=== PATIENT | female | born 1950 | race Caucasian/White ===

== ENCOUNTER 2018-07-23 12:17 | Outpatient (CLI) | payer MEDICARE, SELFPAY ==
[2018-07-23 13:25] LABS: Cholesterol 170 mg/dL (50-200); HDL Cholesterol 46 mg/dL (40-60); LDL CHOLESTEROL 86 mg/dL (<100); Triglyceride 299 mg/dL (30-150)
== END 2018-07-23 12:37 ==
PROVIDERS: PCP Nurse Practitioner; Visit Provider Nurse Practitioner
DX: E78.5 Hyperlipidemia, unspecified (principal); I25.10 Atherosclerotic heart disease of native coronary artery without angina pectoris
CPT/HCPCS: 36415; 80061; 83721

== ENCOUNTER 2018-07-31 13:00 | Outpatient (CLI) | payer MEDICARE, SELFPAY ==
[2018-07-31 14:07] LABS: ALT 49 U/L (12-78); AST 42 U/L (15-37); Albumin 3.9 g/dL (3.4-5.0); Alkaline Phosphatase 155 U/L (46-116); Anion Gap 10.6 mmol/L (3-11); BUN 29 mg/dL (7-18); Bilirubin, Total 0.3 mg/dL (0.2-1.0); CO2 25.4 mmol/L (21.0-32.0); CREATININE 1.38 mg/dL (0.55-1.02); Calcium 9.4 mg/dL (8.5-10.1); Chloride 103 mmol/L (98-107); Estimated GFR 38.37 (mL/min/1.73m2); Glucose 102 mg/dL (70-100); Potassium 4.8 mmol/L (3.5-5.1); Sodium 139 mmol/L (136-145); Total Protein 6.9 g/dL (6.4-8.2)
== END 2018-07-31 13:20 ==
PROVIDERS: PCP Nurse Practitioner; Visit Provider Nurse Practitioner
DX: H57.9 Unspecified disorder of eye and adnexa (principal); R73.09 Other abnormal glucose; I25.10 Atherosclerotic heart disease of native coronary artery without angina pectoris; E66.9 Obesity, unspecified
CPT/HCPCS: 36415; 80053

== ENCOUNTER 2018-08-14 14:43 | Outpatient (CLI) | payer MEDICARE, SELFPAY ==
[2018-08-14 16:23] LABS: Anion Gap 10.8 mmol/L (3-11); BUN 22 mg/dL (7-18); CO2 26.2 mmol/L (21.0-32.0); CREATININE 1.24 mg/dL (0.55-1.02); Calcium 9.9 mg/dL (8.5-10.1); Chloride 101 mmol/L (98-107); Estimated GFR 43.41 (mL/min/1.73m2); Glucose 95 mg/dL (70-100); Sodium 138 mmol/L (136-145)
== END 2018-08-14 15:03 ==
PROVIDERS: PCP Nurse Practitioner; Visit Provider Nurse Practitioner
DX: R79.9 Abnormal finding of blood chemistry, unspecified (principal)
CPT/HCPCS: 36415; 80048

== ENCOUNTER 2018-08-30 11:08 | Outpatient (CLI) | payer MEDICARE, SELFPAY ==
[2018-08-30 12:29] LABS: Anion Gap 10.6 mmol/L (3-11); BUN 23 mg/dL (7-18); CO2 25.4 mmol/L (21.0-32.0); CREATININE 1.49 mg/dL (0.55-1.02); Calcium 10.1 mg/dL (8.5-10.1); Chloride 101 mmol/L (98-107); Estimated GFR 35.12 (mL/min/1.73m2); Glucose 92 mg/dL (70-100); Potassium 4.8 mmol/L (3.5-5.1); Sodium 137 mmol/L (136-145)
== END 2018-08-30 11:28 ==
PROVIDERS: PCP Nurse Practitioner; Visit Provider Nurse Practitioner
DX: R79.9 Abnormal finding of blood chemistry, unspecified (principal); I25.10 Atherosclerotic heart disease of native coronary artery without angina pectoris
CPT/HCPCS: 36415; 80048

== ENCOUNTER 2018-09-11 13:17 | Outpatient (CLI) | payer MEDICARE, SELFPAY ==
[2018-09-11 16:06] LABS: Anion Gap 13.2 mmol/L (3-11); BUN 24 mg/dL (7-18); CO2 22.8 mmol/L (21.0-32.0); CREATININE 1.48 mg/dL (0.55-1.02); Calcium 9.7 mg/dL (8.5-10.1); Chloride 103 mmol/L (98-107); Estimated GFR 35.39 (mL/min/1.73m2); Glucose 131 mg/dL (70-100); Potassium 4.7 mmol/L (3.5-5.1); Sodium 139 mmol/L (136-145)
== END 2018-09-11 13:37 ==
PROVIDERS: PCP Nurse Practitioner; Visit Provider Internal Medicine Endocrinology, Diabetes & Metabolism
DX: R89.9 Unspecified abnormal finding in specimens from other organs, systems and tissues (principal)
CPT/HCPCS: 36415; 80048

== ENCOUNTER 2018-09-27 14:24 | Outpatient (CLI) | payer MEDICARE, SELFPAY ==
[2018-09-27 16:07] LABS: Anion Gap 12.1 mmol/L (3-11); BUN 15 mg/dL (7-18); CO2 23.9 mmol/L (21.0-32.0); Calcium 9.4 mg/dL (8.5-10.1); Chloride 105 mmol/L (98-107); Estimated GFR 49.85 (mL/min/1.73m2); Glucose 99 mg/dL (70-100); Potassium 4.3 mmol/L (3.5-5.1); Sodium 141 mmol/L (136-145)
== END 2018-09-27 14:44 ==
PROVIDERS: PCP Nurse Practitioner; Visit Provider Internal Medicine Endocrinology, Diabetes & Metabolism
DX: R89.9 Unspecified abnormal finding in specimens from other organs, systems and tissues (principal)
CPT/HCPCS: 36415; 80048

== ENCOUNTER 2019-07-25 08:51 | Outpatient (CLI) | payer MEDICARE, SELFPAY ==
[2019-07-25 10:13] LABS: Hemoglobin A1C 5.7 % (4.5-6.2)
[2019-07-25 11:10] LABS: Calculated LDL 78 mg/dL; Cholesterol 176 mg/dL (<200); HDL Cholesterol 51 mg/dL (40-60); Triglyceride 235 mg/dL (<150)
[2019-07-25 11:20] LABS: Glucose 99 mg/dL (74-106)
== END 2019-07-25 09:11 ==
PROVIDERS: PCP Nurse Practitioner; Visit Provider Optometrist
DX: I25.10 Atherosclerotic heart disease of native coronary artery without angina pectoris (principal); E08.21 Diabetes mellitus due to underlying condition with diabetic nephropathy; E78.5 Hyperlipidemia, unspecified
CPT/HCPCS: 36415; 80061; 82947; 83036

== ENCOUNTER 2019-07-31 00:43 | Outpatient (CLI) | payer MEDICARE, SELFPAY ==
--- NOTE | 2019-07-31 08:03 | DI.US_ITS ---
EXAM: US AAA SCREENING CLINICAL HISTORY: screen AAA Z87.891 HX NICOTINE DEPENDENCE TECHNIQUE: Ultrasound performed using standard protocol. COMPARISON: SACRUM COCCYX from 10/23/2016 CHEST FOR PULMONARY EMBOLUS from 11/01/2016 FINDINGS: There is mild dilatation of the mid and distal abdominal aorta 2.6 cm compared with the proximal aor ta which measures 2.2 cm. The iliac arteries are normal in diameter. IMPRESSION: No evidence of an abdominal aortic aneurysm.
== END 2019-07-31 01:03 ==
PROVIDERS: PCP Nurse Practitioner; Visit Provider Nurse Practitioner
DX: I25.10 Atherosclerotic heart disease of native coronary artery without angina pectoris (principal); I10 Essential (primary) hypertension; F64.0 Transsexualism; Z87.891 Personal history of nicotine dependence
CPT/HCPCS: 76706

== ENCOUNTER → 2019-09-04 11:05 | Outpatient (BNVA) | payer MEDICARE, SELFPAY | PROVIDERS: PCP Nurse Practitioner; Referring Provider Nurse Practitioner; Visit Provider Internal Medicine Cardiovascular Disease | DX: I25.10 Atherosclerotic heart disease of native coronary artery without angina pectoris (principal); E78.5 Hyperlipidemia, unspecified; Z95.1 Presence of aortocoronary bypass graft; I10 Essential (primary) hypertension | CPT/HCPCS: 99204; 99215 ==

== ENCOUNTER 2019-09-30 10:16 | Outpatient (CLI) | payer MEDICARE, SELFPAY ==
--- NOTE | 2019-09-30 09:53 | DI.RAD_ITS ---
EXAM: XR HIP RT COMPLETE AP PELVIS INDICATION: Pain around the ASIS M25.559 PAIN IN HIP. COMPARISON: SACRUM COCCYX from 10/23/2016 TECHNIQUE: 2D digital imaging was performed. FINDINGS: Joint spaces are well maintained. There is bilateral acetabular spurring. Spurring is also seen fr om the greater trochanters. IMPRESSION: Mild degenerative changes.
== END 2019-09-30 10:36 ==
PROVIDERS: PCP Nurse Practitioner; Visit Provider Family Medicine
DX: M25.551 Pain in right hip (principal); M16.11 Unilateral primary osteoarthritis, right hip
CPT/HCPCS: 73502

== ENCOUNTER 2020-02-26 01:25 | Outpatient (CLI) | payer MEDICARE, SELFPAY ==
[2020-02-26 11:45] LABS: HCT 39.5 % (36.0-46.0); HGB 13.6 g/dL (12.0-15.5); Mean Corp. HGB Concentration 34.4 g/dL (32.0-36.0); Mean Corpuscular Hemoglobin 30.4 pg (27.0-33.0); Mean Corpuscular Volume 88.4 fL (80-95); Mean Platelet Volume 11.2 fL (8.0-11.0); Platelet Count 340 x1000/uL (130-400); RBC 4.47 m/cumm (4.00-5.20); RBC Distribution Width 14.4 % (11.7-14.6); White Blood Cell Count 6.96 k/cumm (4.4-10.8)
[2020-02-26 13:11] LABS: ALT 21 U/L (14-59); AST 21 U/L (15-37); Albumin 3.7 g/dL (3.4-5.0); Alkaline Phosphatase 101 U/L (46-116); BUN 12 mg/dL (7-18); Bilirubin, Total 0.2 mg/dL (0.2-1.0); CREATININE 1.06 mg/dL (0.55-1.02); Calcium 9.4 mg/dL (8.5-10.1); Calculated LDL 72 mg/dL (<100); Chloride 105 mmol/L (98-107); Cholesterol 157 mg/dL (<200); Estimated GFR 51.71 (mL/min/1.73m2); Glucose 100 mg/dL (74-106); HDL Cholesterol 50 mg/dL (40-60); Potassium 4.3 mmol/L (3.5-5.1); Sodium 140 mmol/L (136-145); Total Protein 6.7 g/dL (6.4-8.2); Triglyceride 177 mg/dL (<150)
[2020-02-26 17:01] LABS: Estradiol 24 pg/mL (See Note)
== END 2020-02-26 01:45 ==
PROVIDERS: PCP Nurse Practitioner; Visit Provider Nurse Practitioner
DX: I25.10 Atherosclerotic heart disease of native coronary artery without angina pectoris (principal); F43.20 Adjustment disorder, unspecified
CPT/HCPCS: 36415; 80053; 80061; 85027; 82670

== ENCOUNTER → 2020-09-13 11:51 | Outpatient (BNVA) | payer MEDICARE, SELFPAY | PROVIDERS: PCP Nurse Practitioner; Referring Provider Nurse Practitioner; Visit Provider Internal Medicine Cardiovascular Disease | DX: R69 Illness, unspecified (principal) ==

== ENCOUNTER → 2020-10-11 11:41 | Outpatient (BNVA) | payer MEDICARE, SELFPAY | PROVIDERS: PCP Nurse Practitioner; Referring Provider Nurse Practitioner; Visit Provider Internal Medicine Cardiovascular Disease | DX: I25.810 Atherosclerosis of coronary artery bypass graft(s) without angina pectoris (principal); Z79.82 Long term (current) use of aspirin; E78.5 Hyperlipidemia, unspecified | CPT/HCPCS: 99442; 99213 ==

== ENCOUNTER 2020-10-29 09:35 | Day surgery (SDC) | payer MEDICARE, SELFPAY ==
[2020-10-29 10:03] VITALS: BP 123/61; PULSE 65; RESP 16; TEMP 35.9; O2SAT 97
[2020-10-29] MEDS: Tropicam./Phenyleph. (1/2.5%) 5 ML BTL OD ×3 (10:21→10:34)
[2020-10-29] MEDS: Tetracaine 0.5% 4 ML BTL OD (11:10)
[2020-10-29] MEDS: Duovisc Viscoelastic System EACH 1 EACH (11:11)
[2020-10-29] MEDS: Balanced Salt Soln.-PLUS 500 ML BAG (11:11)
[2020-10-29] MEDS: Lidocaine 1% Pres-Free 5 ML VIAL (11:12)
[2020-10-29] MEDS: Lidocaine 2% Jelly 6 ML SYR (11:12)
[2020-10-29] MEDS: Povidone-Iodine Ophth 30 ML BTL (11:13)
--- NOTE | 2020-10-29 11:38 | ROE_ITS ---
Date of service: 10/29/20 Time of Service: 11:38 Operative Note Operative Note DATE OF PROCEDURE: 10/29/20 PRE-OP DIAGNOSIS: Nuclear cataract, right eye POST-OP DIAGNOSIS: same PROCEDURE: Cataract extraction using phacoemulsification with intraocular lens implant, right eye SURGEON: Armond Cowart ANESTHESIA TYPE: Local By Surgeon and MAC Refer to Anesthesia Record ESTIMATED BLOOD LOSS: 0 PATHOLOGY: none sent COMPLICATIONS: None Patient was transported to: same day Patient's condition: stable Implants: Rodrigo [employer] / [employer] Tecnis ZCB00 intraocular lens Indications: Progressive decreased vision due to cataract, right eye Procedure Description: CATARACT SURGERY OPERATIVE REPORT PREOPERATIVE DIAGNOSIS: Nuclear cataract, right eye POSTOPERATIVE DIAGNOSIS: Same OPERATION: Cataract extraction using phacoemulsification with posterior chamber intraocular lens implant, right eye. IOL: IOL Regional Operations Manager/Model: J[employer]J Vision / SO Tecnis ZCB00 IOL Power: + 15.5 diopters IOL Serial Number: [id number] Optic Diameter: 6.0mm Haptic/Overall Diameter: 13.0mm PHACO INFO: Yayo [employer] Vision System with OZil and Active Fluidics Cumulative Dispersed Energy (CDE): 15.14 seconds SURGEON: Armond Cowart MD, MORGAN ANESTHESIA: Monitored Anesthesia Care (MAC), with local sub-tenon's anesthetic infiltration COMPLICATIONS: None SPECIMENS: None INDICATIONS FOR PROCEDURE: The patient is a 69-year-old lady with history of myopia who has noted diminished visual acuity in both eyes. She was noted to have significant bilateral nuclear cataract. The option of cataract surgery was offered to the patient and she wished to proceed. PROCEDURE: The correct surgical eye was identified and marked as the right eye and the pupil was dilated in the preoperative area using mydriatics and cycloplegics. The dilated pupil size was 6.5 mm. She elected to proceed without oral sedation. The patient was brought to the operating room where cardiopulmonary monitoring was instituted and surgical time-out was performed, confirming the correct operative eye and IOL power. Topical anesthesia was administered and ophthalmic povidone-iodine 5% was instilled into the conjunctival fornices. Lidocaine gel was applied to the cornea and the gertrude-ocular area was prepped with Betadine 10% solution and draped in the usual sterile fashion for intraocular surgery, including an aperture drape. A Tegaderm transparent film dressing was cut in half and used to cover the lashes and lid margins. Care was taken to sequester the lashes and lid margins under the Tegaderm dressing. A lid speculum was placed between the lids of the operative eye and the May-Mara operating microscope was maneuvered into position. Allie scissors were then used to make a conjunctival buttonhole approximately 6mm posterior to the limbus in the inferonasal quadrant. Blunt dissection was carried out to expose bare sclera, and a blunt-tipped sub-tenon?s anesthesia cannula was introduced and passed posteriorly along the globe where non- preserved plain lidocaine was injected into posterior sub-Tenon?s space. A sideport knife was used to make a paracentesis port inferiortemporally. Intraocular phenylephrine/lidocaine was injected into the anterior chamber. The anterior chamber was then filled with viscoelastic. A 2.4mm keratome knife was used to create a half-thickness groove at the limbus and then to construct a three-plane near-clear corneal tunnel extending 2.0mm into clear cornea in the superiortemporal position. . A flap was raised on the anterior capsule and capsulorhexis forceps were used to complete a continuous curvilinear capsulorhexis of 5.0 mm. Balanced salt solution was then used to perform cortical cleaving hydrodissection and nuclear hydrodelineation until the lens could be freely rotated within the capsular bag. The lens nucleus was then disassembled and removed within the capsular bag and iris plane using phacoemulsification. Residual cortical material was removed using the I/A handpiece. The posterior capsule was carefully polished to remove as much residual lens epithelial cells as safely possible. The capsular bag was then inflated and the anterior chamber deepened with viscoelastic. The lens implant described above was inserted into the capsular bag using the SO [place] Injector. A Kuglen hook was used to dial the IOL into position. Residual viscoelastic was then removed first from posterior to the IOL, then from the anterior chamber using the I/A handpiece. The lens implant was noted to center nicely within the capsular bag. The incisions were stromally hydrated, and the anterior chamber was reformed using BSS. Then 0.5cc of moxifloxacin 1.0mg/ml were injected into the capsular bag and anterior chamber. The incisions were checked with a Weck spear and found to be secure. Several drops of ophthalmic povidone-iodine 5% were then applied to the eye followed by two drops of Imprimis combination prednisolone/moxifloxacin/nepafenac solution. The drapes were removed and a clear plastic protective eye shield was placed over the eye. The patient was then returned to Same Day Surgery in stable condition.
--- NOTE | 2020-10-29 11:38 | W.PM.DSUDISC ---
Discharge Plan Disposition Patient Disposition: HOME Condition: Good Discharge Details Attending Provider: Armond Cowart Primary Care Provider: Yara Chaudhry Home Meds and New Rx's Prescriptions: No Action rosuvastatin 40 mg tablet 40 mg PO DAILY Qty: 90 RF: 3 multivitamin [Daily Multi-Vitamin] 1 EACH tablet 1 ea PO DAILY RF: 0 coenzyme [id number]-[id number] E [Co Q-10 (with Vit E)] 1 EACH capsule 1 ea PO BID RF: 0 aspirin 81 mg tablet,delayed release (DR/EC) 81 mg PO DAILY Qty: 60 RF: 0 estradiol 0.1 mg/24 hr patch semiweekly 1 patch TD .twice weekly RF: 0 acetaminophen 500 mg tablet 1,000 mg PO Q6H RF: 0 metoprolol succinate 100 mg tablet extended release 24 hr 100 mg PO BID Qty: 180 RF: 3 Discharge Instructions Stand Alone Forms: Post-op Topical Cataract, Holly Khan (DSU) Discharge Orders Discharge Orders: Discharge Order (Routine); Ordered 10/29/20 Ordered By: Armond Cowart DS: Diagnosis Discharge Diagnosis (1) Nuclear sclerotic cataract of right eye: Status: Resolved
[2020-10-29 11:39] VITALS: BP 127/70; PULSE 58; RESP 16; TEMP 36; O2SAT 99
== END 2020-10-29 12:24 | disposition home or self-care (01) ==
PROVIDERS: PCP Nurse Practitioner; Visit Provider Ophthalmology
PROC: (CPT 66984; principal; 2020-10-29 12:30)
DX: H25.11 Age-related nuclear cataract, right eye (principal); I10 Essential (primary) hypertension; E78.00 Pure hypercholesterolemia, unspecified; I25.10 Atherosclerotic heart disease of native coronary artery without angina pectoris
CPT/HCPCS: 66984; V2632

== ENCOUNTER 2020-11-12 09:35 | Day surgery (SDC) | payer MEDICARE, SELFPAY ==
[2020-11-12 10:02] VITALS: BP 117/64; PULSE 61; RESP 20; TEMP 36; O2SAT 97
[2020-11-12] MEDS: Tropicam./Phenyleph. (1/2.5%) 5 ML BTL OS ×3 (10:08→10:18)
[2020-11-12] MEDS: Tetracaine 0.5% 4 ML BTL OS (11:28)
[2020-11-12] MEDS: Balanced Salt Soln.-PLUS 500 ML BAG (11:29)
[2020-11-12] MEDS: Duovisc Viscoelastic System EACH 1 EACH (11:30)
[2020-11-12] MEDS: Lidocaine 1% Pres-Free 5 ML VIAL (11:30)
[2020-11-12] MEDS: Lidocaine 2% Jelly 6 ML SYR (11:30)
[2020-11-12] MEDS: Povidone-Iodine Ophth 30 ML BTL (11:31)
--- NOTE | 2020-11-12 11:53 | W.PM.DSUDISC ---
Discharge Plan Disposition Patient Disposition: HOME Condition: Good Discharge Details Attending Provider: Armond Cowart Primary Care Provider: Yara Chaudhry Home Meds and New Rx's Prescriptions: No Action rosuvastatin 40 mg tablet 40 mg PO DAILY Qty: 90 RF: 3 multivitamin [Daily Multi-Vitamin] 1 EACH tablet 1 ea PO DAILY RF: 0 coenzyme P50-lulbcyy E [Co Q-10 (with Vit E)] 1 EACH capsule 1 ea PO BID RF: 0 aspirin 81 mg tablet,delayed release (DR/EC) 81 mg PO DAILY Qty: 60 RF: 0 estradiol 0.1 mg/24 hr patch semiweekly 1 patch TD .twice weekly RF: 0 acetaminophen 500 mg tablet 1,000 mg PO Q6H RF: 0 metoprolol succinate 100 mg tablet extended release 24 hr 100 mg PO BID Qty: 180 RF: 3 Discharge Instructions Stand Alone Forms: Post-op Topical Cataract, Holly Khan (DSU) Discharge Orders Discharge Orders: Discharge Order (Routine); Ordered 11/12/20 Ordered By: Armond Cowart DS: Diagnosis Discharge Diagnosis (1) Nuclear sclerotic cataract of left eye: Status: Resolved
--- NOTE | 2020-11-12 11:54 | ROE_ITS ---
Date of service: 11/12/20 Time of Service: 11:54 Operative Note Operative Note DATE OF PROCEDURE: 11/12/20 PRE-OP DIAGNOSIS: Nuclear cataract, left eye POST-OP DIAGNOSIS: same PROCEDURE: Cataract extraction using phacoemulsification with intraocular lens implant, left eye SURGEON: Armond Cowart ANESTHESIA TYPE: Local By Surgeon and MAC Refer to Anesthesia Record PATHOLOGY: none sent COMPLICATIONS: None Patient was transported to: same day Patient's condition: stable Implants: Rodrigo and [employer] / [employer] Tecnis ZCB00 Indications: Progressive decreased vision due to cataract, left eye Procedure Description: CATARACT SURGERY OPERATIVE REPORT PREOPERATIVE DIAGNOSIS: Nuclear cataract, left eye POSTOPERATIVE DIAGNOSIS: Same OPERATION: Cataract extraction using phacoemulsification with posterior chamber intraocular lens implant, left eye. IOL: IOL Head Of Loss Prevention/Model: J&J Vision / SO Tecnis ZCB00 IOL Power: + 17.0 diopters IOL Serial Number: [id number] Optic Diameter: 6.0mm Haptic/Overall Diameter: 13.0mm PHACO INFO: Yayo [employer] Vision System with OZil and Active Fluidics Cumulative Dispersed Energy (CDE): 7.65 seconds SURGEON: Armond Cowart MD, MORGAN ANESTHESIA: Monitored Anesthesia Care (MAC), with local sub-tenon's anesthetic infiltration COMPLICATIONS: None SPECIMENS: None INDICATIONS FOR PROCEDURE: The patient is a 69-year-old lady with history of diminished visual acuity in both eyes secondary to the development of bilateral cataract. She has already undergone cataract surgery in her right eye and is doing well postoperatively. She now presents for cataract surgery in the left eye. PROCEDURE: The correct surgical eye was identified and marked as the left eye and the pupil was dilated in the preoperative area using mydriatics and cycloplegics. The dilated pupil size was 6.5 mm. The patient elected to proceed without oral sedation.. The patient was brought to the operating room where cardiopulmonary monitoring was instituted and surgical time-out was performed, confirming the correct operative eye and IOL power. Topical anesthesia was administered and ophthalmic povidone-iodine 5% was instilled into the conjunctival fornices. Lidocaine gel was applied to the cornea and the gertrude-ocular area was prepped with Betadine 10% solution and draped in the usual sterile fashion for intraocular surgery, including an aperture drape. A Tegaderm transparent film dressing was cut in half and used to cover the lashes and lid margins. Care was taken to sequester the lashes and lid margins under the Tegaderm dressing. A lid speculum was placed between the lids of the operative eye and the May-Mara operating microscope was maneuvered into position. Allie scissors were then used to make a conjunctival buttonhole approximately 6mm posterior to the limbus in the inferonasal quadrant. Blunt dissection was carried out to expose bare sclera, and a blunt-tipped sub-tenon?s anesthesia cannula was introduced and passed posteriorly along the globe where non- preserved plain lidocaine was injected into posterior sub-Tenon?s space. A sideport knife was used to make a paracentesis port superior/superiortemporally. Intraocular phenylephrine/lidocaine was injected into the anterior chamber. The anterior chamber was then filled with viscoelastic. A 2.4mm keratome knife was used to create a half-thickness groove at the limbus and then to construct a three-plane near-clear corneal tunnel extending 2.0mm into clear cornea in the temporal position. . A flap was raised on the anterior capsule and capsulorhexis forceps were used to complete a continuous curvilinear capsulorhexis of 5.5 mm. Balanced salt solution was then used to perform cortical cleaving hydrodissection and nuclear hydrodelineation until the lens could be freely rot ated within the capsular bag. The lens nucleus was then disassembled and removed within the capsular bag and iris plane using phacoemulsification. Residual cortical material was removed using the 45-degree angled silicone I/A tip with 0.3mm port. The posterior capsule was carefully polished to remove as much residual lens epithelial cells as safely possible. The capsular bag was then inflated and the anterior chamber deepened with viscoelastic. The lens implant described above was inserted into the capsular bag using the SO [place] Injector. A Kuglen hook was used to dial the IOL into position. Residual viscoelastic was then removed first from posterior to the IOL, then from the anterior chamber using the I/A handpiece. The lens implant was noted to center nicely within the capsular bag. The incisions were stromally hydrated, and the anterior chamber was reformed using BSS. Then 0.5cc of moxifloxacin 1.0mg/ml were injected into the capsular bag and anterior chamber. The inci sions were checked with a Weck spear and found to be secure. Several drops of ophthalmic povidone-iodine 5% were then applied to the eye followed by two drops of Imprimis combination prednisolone/moxifloxacin/nepafenac solution. The drapes were removed and a clear plastic protective eye shield was placed over the eye. The patient was then returned to Same Day Surgery in stable condition.
== END 2020-11-12 12:23 | disposition home or self-care (01) ==
PROVIDERS: PCP Nurse Practitioner; Visit Provider Ophthalmology
PROC: (CPT 66984; principal; 2020-11-12 12:30)
DX: H25.12 Age-related nuclear cataract, left eye (principal); Z96.1 Presence of intraocular lens; Z98.41 Cataract extraction status, right eye
CPT/HCPCS: 66984; V2632

== ENCOUNTER 2020-11-17 03:30 | Outpatient (CLI) | payer MEDICARE, SELFPAY ==
[2020-11-17 14:33] LABS: ALT 27 U/L (14-59); AST 26 U/L (15-37); Albumin 3.6 g/dL (3.4-5.0); Alkaline Phosphatase 106 U/L (46-116); Anion Gap 6.4 mmol/L (3-11); BUN 16 mg/dL (7-18); Bilirubin, Total 0.4 mg/dL (0.2-1.0); CO2 29.6 mmol/L (21.0-32.0); CREATININE 1.1 mg/dL (0.55-1.02); Calcium 9.7 mg/dL (8.5-10.1); Chloride 104 mmol/L (98-107); Estimated GFR 49.54 (mL/min/1.73m2); Glucose 104 mg/dL (74-106); Potassium 4.8 mmol/L (3.5-5.1); Sodium 140 mmol/L (136-145)
[2020-11-17 22:15] LABS: Estradiol 51 pg/mL (See Note)
[2020-11-23 10:20] LABS: Testosterone, Total <7.0 ng/dL (8-60)
== END 2020-11-17 03:31 | disposition home or self-care (01) ==
LOC: LBO 03:30
PROVIDERS: PCP Nurse Practitioner; Visit Provider Internal Medicine Endocrinology, Diabetes & Metabolism
DX: E34.9 Endocrine disorder, unspecified (principal)
CPT/HCPCS: 36415; 80053; 84403; 82670

== ENCOUNTER 2021-04-14 03:50 | Outpatient (CLI) | payer MEDICARE, SELFPAY ==
[2021-04-14 10:46] LABS: ALT 21 U/L (14-59); AST 23 U/L (15-37); Albumin 3.6 g/dL (3.4-5.0); Alkaline Phosphatase 86 U/L (46-116); BUN 14 mg/dL (7-18); Bilirubin, Total 0.3 mg/dL (0.2-1.0); Calcium 9.3 mg/dL (8.5-10.1); Calculated LDL 56 mg/dL (<100); Chloride 106 mmol/L (98-107); Cholesterol 153 mg/dL (<200); Estimated GFR 55.14 (mL/min/1.73m2); Glucose 106 mg/dL (74-106); HDL Cholesterol 47 mg/dL (40-60); Potassium 4.4 mmol/L (3.5-5.1); Sodium 141 mmol/L (136-145); Total Protein 6.5 g/dL (6.4-8.2); Triglyceride 253 mg/dL (<150)
== END 2021-04-14 03:51 | disposition home or self-care (01) ==
LOC: LBO 03:50
PROVIDERS: PCP Nurse Practitioner; Visit Provider Nurse Practitioner
DX: I25.10 Atherosclerotic heart disease of native coronary artery without angina pectoris (principal); E78.5 Hyperlipidemia, unspecified
CPT/HCPCS: 36415; 80053; 80061

== ENCOUNTER 2021-08-29 01:49 | Outpatient (CLI) | payer MEDICARE, SELFPAY ==
--- NOTE | 2021-08-29 08:15 | DI.MAMMO_ITS ---
Exam(s) MAMMO SCREENING EXAM: MAMMO SCREENING CLINICAL HISTORY: screening,z12.39 TECHNIQUE: Mammograms were interpreted according to the usual protocol including computer analysis w [employer] CAD system, tomosynthesis and C-view imaging. COMPARISON: None. Baseline examination FINDINGS: The breasts are composed of heterogeneously dense fibroglandular densities, Breast Density category C . No suspicious masses or suspicious microcalcifications are seen. No skin thickening or abnormal axillary lymph nodes are seen. IMPRESSION: BI-RADS Category 1, Negative mammogram. Yearly screening mammography is recommended. Breast Density Category C, heterogeneously Dense. The mammogram demonstrates the patient's breast tissue is dense. Dense breast tissue is very common a nd is not abnormal but dense breast tissue can make it harder to find cancer on a mammogram. Also, de nse breast tissue may increase breast cancer risk. This information about the result of the mammogram report was provided to the patient to raise their awareness. Use this report when you speak with the patient about their risks for breast cancer, which includes their family history. At that time, you may recommend additional screening tests (Ultrasound or MRI) as they might be useful based on their r isk. A negative radiographic report should not delay biopsy if a dominant or clinically suspicious mass is present. Up to ten percent of cancers are not identified on mammography. A negative report may reinforce clinical impression. Adenosis and dense breasts may obscure an underlying neoplasm. False positive reports average 6 to 10%.
--- NOTE | 2021-08-29 08:15 | DI.RAD_ITS ---
Exam(s) XR RIBS RT W PA LAT CHEST CLINICAL HISTORY: right rib pain for 2 years,r07.81. COMPARISON: CR RIGHT SHOULDER COMPLETE from 11/06/2016 FINDINGS: LUNGS:Clear. No pleural abnormality seen. HEART: Normal. 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 BONES: No displaced rib fracture is seen. No bony destructive lesion is seen. Mild degenerative perales ges in the spine. OTHER FINDINGS: Sternal wires. IMPRESSION: 1. Unremarkable radiographic appearance of the right ribs. 2. No acute pulmonary findings.
== END 2021-08-29 02:09 ==
PROVIDERS: PCP Nurse Practitioner; Visit Provider Nurse Practitioner
DX: R07.81 Pleurodynia (principal); I25.10 Atherosclerotic heart disease of native coronary artery without angina pectoris; E78.5 Hyperlipidemia, unspecified; Z12.31 Encounter for screening mammogram for malignant neoplasm of breast; R92.8 Other abnormal and inconclusive findings on diagnostic imaging of breast
CPT/HCPCS: 77063; 77067; 71046; 71100; 99213

== ENCOUNTER 2021-08-31 03:25 | Outpatient (CLI) | payer MEDICARE, SELFPAY ==
[2021-08-31 13:20] LABS: Calculated LDL 63 mg/dL (<100); Cholesterol 153 mg/dL (<200); HDL Cholesterol 56 mg/dL (40-60); Triglyceride 170 mg/dL (<150)
[2021-08-31 13:28] LABS: ALT 29 U/L (14-59); AST 26 U/L (15-37); Albumin 3.7 g/dL (3.4-5.0); Alkaline Phosphatase 88 U/L (46-116); Anion Gap 10.3 mmol/L (3-11); BUN 15 mg/dL (7-18); Bilirubin, Total 0.4 mg/dL (0.2-1.0); CO2 24.7 mmol/L (21.0-32.0); Calcium 9.4 mg/dL (8.5-10.1); Chloride 104 mmol/L (98-107); Estimated GFR 55.14 (mL/min/1.73m2); Glucose 105 mg/dL (74-106); Potassium 4.5 mmol/L (3.5-5.1); Sodium 139 mmol/L (136-145)
[2021-08-31 22:15] LABS: Estradiol 63 pg/mL (See Note)
== END 2021-08-31 03:26 | disposition home or self-care (01) ==
LOC: LBO 03:25
PROVIDERS: PCP Nurse Practitioner; Visit Provider Physician Assistant
DX: I25.10 Atherosclerotic heart disease of native coronary artery without angina pectoris (principal); F64.8 Other gender identity disorders
CPT/HCPCS: 36415; 80053; 80061; 82670

== ENCOUNTER 2021-09-14 00:52 | Outpatient (CLI) | payer MEDICARE, SELFPAY ==
--- NOTE | 2021-09-14 14:23 | DI.CT_ITS ---
Exam(s) CT CHEST WO EXAM: CT CHEST WO CLINICAL HISTORY: 2 yrs lateral rt rib/chest pain, cxr neg, rt sided chest wall pain, R07.89. TECHNIQUE: Multi planar reconstructions were performed. CONTRAST MATERIAL: None COMPARISON: CT CHEST FOR PULMONARY EMBOLUS from 11/01/2016 FINDINGS: CHEST: LUNGS: No infiltrates nor pleural effusions small fissural based nodule on the left side is unchanged from 2017. No new findings in trachea and mainstem bronchi. MEDIASTINUM: There is no obvious hilar nor mediastinal adenopathy. Visualized thyroid unremarkable.No obvious axillary adenopathy CARDIAC: There are sternotomy wires are again noted.Heart size is normal. Coronary artery calcificat ion is noted. No pericardial effusion. Caliber thoracic aorta is within normal limits. VISUALIZED UPPER ABDOMEN:No adrenal masses. There is been significant increase in amount of breast t issue bilaterally. OSSEOUS: No significant osseous lesions.No compression fractures.. IMPRESSION: 1. No new pulmonary findings. No new nodules. No pleural effusions 2. There has been significant increased amount of bilateral breast tissue in this patient since the p rior study of 2017. This appears symmetrical. 3. Sternotomy wires again noted with healing of this sternotomy. RADIATION DOSE DELIVERED: 733.68mGy.cm Total DLP DATA REPOSITORY: All CT scans at this facility are submitted to the National Radiology Data Registry (NRDR) Dose Index Registry (DIR) with the [employer] (ACR). RADIATION OPTIMIZATION: All CT scans at this facility use at least one of these dose optimization te chniques: automated exposure control; mA and/or kV adjustment per patient size (includes targeted exa ms where dose is matched to clinical indication); or iterative reconstruction.
== END 2021-09-14 01:12 ==
PROVIDERS: PCP Nurse Practitioner; Visit Provider Nurse Practitioner
DX: R07.89 Other chest pain (principal); R07.81 Pleurodynia; R91.1 Solitary pulmonary nodule; Z98.890 Other specified postprocedural states
CPT/HCPCS: 71250

== ENCOUNTER → 2022-06-06 14:52 | Outpatient (BNVA) | payer MEDICARE, SELFPAY | PROVIDERS: PCP Nurse Practitioner; Referring Provider Nurse Practitioner; Visit Provider Surgery | DX: D12.6 Benign neoplasm of colon, unspecified (principal); Z12.11 Encounter for screening for malignant neoplasm of colon; Z87.890 Personal history of sex reassignment | CPT/HCPCS: 99242 ==

== ENCOUNTER 2022-06-08 14:32 | Outpatient (CLI) | payer MEDICARE, SELFPAY ==
--- NOTE | 2022-06-08 14:30 | RT.EKG_ITS ---
APPROVED REPORT Exam: Resting ECG Reason for Exam: CAD, A-Fib ? Patient Location: O HR:61 bpm ECG Measurements Heart Rate 61 AXIS MO 153 P 16 QRSd 104 QRS 59 QT 421 T 42 QTc 424 Conclusion Sinus rhythm...normal P axis, V-rate 50- 99 Normal Electrocardiogram Baseline wander in lead(s) V3,V4,V5
== END 2022-06-08 14:33 | disposition home or self-care (01) ==
LOC: CARDOPNVT 14:32
PROVIDERS: PCP Nurse Practitioner; Visit Provider Surgery
DX: I25.10 Atherosclerotic heart disease of native coronary artery without angina pectoris (principal)
CPT/HCPCS: 93005; 93010

== ENCOUNTER 2022-06-19 08:20 | Day surgery (SDC) | payer MEDICARE, SELFPAY ==
--- NOTE | 2022-06-19 06:40 | W.COLOREPORT ---
Date of service: 06/19/22 Time of Service: : Colonoscopy Report Date of procedure: 06/19/22 Pre-op diagnosis general: colon cancer screening, hx of polyps Post-op diagnosis procedure note: same Procedure: Colonoscopy Surgeon: Melvina Becerra Anesthesia Type: General:No Airway Estimated blood loss (mL): 0 Pathology: none sent Complications: None Disposition: same day Indications: Pt seen at the request of PCP regarding colon cancer screening. Pt has? had a colon cancer screening before.? Denies problems with constipation, diarrhea.? No pain or difficulty with bowel movements.? Slt bit of bleeding from hemorrhoid.? There is no family history of any colon cancer.? Pt has not had any weight loss.? Their appetite is good.? No heart, lung, or kidney problems. Occ H/I after eating spicy foods. ? No prior colo-rectal surgery.? ? No problems with anesthesia in the past. Prep: Miralax/Dulcolax Procedure Start Time: : Procedure End Time: 10:45 Retraction Time: 10 minutes Findings: normal Procedure Description: After informed consent was obtained the patient was taken to the procedure room and placed in a left decubitous position. Monitors were applied and a time out was done. The patients name, date of , procedure, allergies to medications and metal in their body was reviewed. The patient was then sedated. Once sedated and comfortable a rectal exam was done. External exam was normal. Internal exam revealed a normal sphincter tone and no palpable masses. The scope was then introduced and retro-flexed. no internal hemorrhoids, polyps or masses were identified on retro-flexion. The scope was then advanced to the cecum without difficulty. The ileocecal vlave and appendiceal orifice were identified. The prep was good. The scope was then slowly retracted over 10 minutes back into the rectum. There were no polyps. There was mild diverticulosis noted. The scope was removed and the patient was woken up and taken back to Same day surgery in stable condition. The patient tolerated the procedure well and there were no immediate complications.
--- NOTE | 2022-06-19 06:41 | W.PM.DSUDISC ---
Date of service: 06/19/22 Time of Service: 10:27 Discharge Plan Disposition Patient Disposition: HOME Condition: Good Discharge Details Reason For Visit: colonoscopy Attending Provider: Melvina Becerra Primary Care Provider: Yara Chaudhry Home Meds and New Rx's Prescriptions: Continued omega-3 fatty acids Capsule 1,250 mg PO DAILY multivitamin [Daily Multi-Vitamin] 1 EACH tablet 1 ea PO DAILY coenzyme [id number] E [Co Q-10 (with Vit E)] 1 EACH capsule 1 ea PO TID Rx Instructions: to take with crestor per Dr Pool. aspirin 81 mg tablet,delayed release (DR/EC) 81 mg PO DAILY Qty: 60 estradiol 0.1 mg/24 hr patch semiweekly 1 patch TD .twice weekly acetaminophen 500 mg tablet 1,000 mg PO Q6H metoprolol succinate 100 mg tablet extended release 24 hr See Rx Instructions .ROUTE .COMPLEX Qty: 180 3RF Dose Instruction: TAKE 1 TABLET BY MOUTH TWICE DAILY Rx Instructions: TAKE 1 TABLET BY MOUTH TWICE DAILY rosuvastatin 40 mg tablet See Rx Instructions .ROUTE .COMPLEX Qty: 90 3RF Dose Instruction: TAKE 1 TABLET BY MOUTH DAILY Rx Instructions: TAKE 1 TABLET BY MOUTH DAILY Discontinued bisacodyl [Dulcolax (bisacodyl)] 5 mg tablet,delayed release (DR/EC) 5 mg PO ONCE Qty: 4 0RF Rx Instructions: Take according to provider's instructions for colonoscopy prep. polyethylene glycol 3350 17 gram/dose powder 17 g PO ONCE Qty: 238 0RF Rx Instructions: To be taken as directed by prescriber's office for colonoscopy prep. Discharge Instructions Additional Instructions: Findings:Normal Follow up: 10 years Please call if you develop: fevers >101.5 Nausea or Vomiting Abdominal pain that is not transient Rectal bleeding that is more then a tbsp A hard abdomen and inability to pass gas DAY SURGERY UNIT POST ENDOSCOPY INSTRUCTIONS Instructions for everyone who is given Anesthesia: For your safety, please do the following for the next 24 Hours: a. Do not drive or operate dangerous equipment b. Do not drink alcohol beverages or use any recreational drugs for the first 24 hours or while taking pain medications. The medications in your body may have a reaction that can be dangerous. c. Do not make any important decisions or sign any important papers 1. Generally there are no restrictions on your activity after a day or so has gone by, but you may feel a bit fatigued for a few days. 2. After you arrive home you may have a light meal and return to a normal diet as you can tolerate it without feeling sick to your stomach. 3. After surgery, you may feel pain or discomfort. This should be only transient, but if it persists please contact your doctor. 4. If there are any questions regarding the findings of your procedure, please feel free to contact your doctor. 6. If you are unable to contact your doctor with a problem, contact the hospital at [phone]. 7. Continue all your regular medications unless directed otherwise. I understand the above instructions and have no questions. Signature of Patient or Responsible Adult Escort Date/Time Name of Responsible Adult Escort Signature of Nurse Date/Time Activity:: Activity as Tolerated Diet:: As Tolerated Discharge Orders Discharge Orders: Discharge Order (Routine); Ordered 06/19/22 Ordered By: Melvina Becerra
--- NOTE | 2022-06-19 08:30 | RT.EKG_ITS ---
APPROVED REPORT Exam: Resting ECG Reason for Exam: Pre op prior to procedure Patient Location: O HR:56 bpm ECG Measurements Heart Rate 56 AXIS ME 174 P 18 QRSd 99 QRS 50 QT 432 T 36 QTc 416 Conclusion Slow sinus arrhythmia...V-rate 47- 63, mean< 60 Normal Electrocardiogram
[2022-06-19 08:35] VITALS: BP 118/64; PULSE 68; RESP 16; TEMP 36.6; O2SAT 99
--- NOTE | 2022-06-19 09:17 | W.ANESPRE ---
General Info Date of Service Date Performed: 06/19/22 Height: 5 ft 8 in Weight: 104.9 kg Body Mass Index (BMI): 35.2 Surgical Procedure: Operation Date: 06/19/22 09:50 Proposed Procedure Side Surgeon daren Becerra MD Meds Allergies and Home Medications Allergies Allergy/AdvReac Type Severity Reaction Status Date / Time atorvastatin AdvReac Severe Mylagias Verified 06/19/22 08:48 pravastatin AdvReac Severe Mylagias Verified 06/19/22 08:48 Home Medication Medication Instructions Recorded multivitamin (Daily Multi-Vitamin 1 ea PO DAILY 06/29/16 tablet) coenzyme [id number] E 100 mg-5 1 ea PO TID 12/27/16 unit capsule (Co Q-10 (with Vit E)) aspirin 81 mg tablet,delayed 81 mg PO DAILY #60 tabs 08/30/18 release acetaminophen 500 mg tablet 1,000 mg PO Q6H 10/29/19 estradiol 0.1 mg/24 hr semiweekly 1 patch transdermal .twice weekly 10/29/19 transdermal patch omega-3 fatty acids 1,250 mg PO DAILY 08/23/21 metoprolol succinate 100 mg See Rx Instructions .Route 10/03/21 tablet,extended release 24 hr .COMPLEX #180 tabs rosuvastatin 40 mg tablet See Rx Instructions .Route 10/03/21 .COMPLEX #90 tabs bisacodyl 5 mg tablet,delayed 5 mg PO ONCE #4 tabs 06/06/22 release (Dulcolax (bisacodyl)) polyethylene glycol 3350 17 17 g PO ONCE #238 grams 06/06/22 gram/dose oral powder Current Visit Medications: Current Medications Generic Name Dose Route Start Last Admin Trade Name Freq PRN Reason Stop Dose Admin Hyoscyamine Sulfate 0.125 mg 06/19/22 06:41 Hyoscyamine 0.125 Mg Sl/Oral/Chew SL DIRECTED PRN Ringer's Solution 1,000 mls @ 80 mls/hr 06/19/22 06:00 IV 07/16/22 23:59 INFUSION JANIE IV Miscellaneous Supplies 1 each 06/19/22 06:00 Iv Access IV 07/16/22 23:59 DIRECTED JANIE Ondansetron HCl 4 mg 06/19/22 06:41 Ondansetron 4 Mg/2 Ml Vial IVP Q4H PRN PRN Nausea / Vomiting Sodium Chloride 0 ml 06/19/22 06:00 Normal Saline Flush 10 Ml Syr IV 07/16/22 23:59 PRN PRN Sodium Chloride 0 ml 06/19/22 06:00 Normal Saline 10 Ml Vial IJ 07/16/22 23:59 DIRECTED PRN Sterile Water 0 ml 06/19/22 06:00 Water,Injection,Sterile 10 Ml Vial IJ 07/16/22 23:59 DIRECTED PRN PFSH Active Problems Active Problems: Problem Status Onset Code Transgender, S/P sex reassignment surgery Z87.890 Family history of heart disease Z82.49 History of heart attack I25.2 Irregular heart beat I49.9 Lung cancer screening declined by patient Z53.20 Myofascial pain M79.18 Adjustment disorder, unspecified 08/08/16 F43.20 Tubular adenoma of colon D12.6 Acute kidney injury N17.9 [id number] transgender person F64.0 Screening for AAA (abdominal aortic aneurysm) Z13.6 Low back pain M54.5 Musculoskeletal pain M79.18 Bleeding hemorrhoid K64.9 Nuclear sclerotic cataract of right eye H25.11 Nuclear sclerotic cataract of left eye H25.12 Hyperlipidemia E78.5 CAD (coronary artery disease) 06/27/17 I25.10 Medical History Medical History Adjustment disorder Hypertension Surgical History Surgical History Appendectomy (~1973) Colonoscopy - IV Sedation (04/11/17) Coronary Artery Bypass Gaft (CABG) 2016 f/u dr. leblanc- telehealth 09/2020 History of orchiectomy, bilateral 11/2018 Hx of cataract extraction Repair, ACL (~1988) Tobacco Smoking/Tobacco Use Status: Former Tobacco Use Alcohol Alcohol Intake: current Alcohol intake frequency: holidays/special occasions only Alcohol type: beer Substance Use Substance use: Never Substance use type: does not use Vital Signs and Lab Results Vital Signs Most Recent Vital Signs in EMR: Most Recent Vital Signs Temp Pulse Resp BP Pulse Ox 36.6 C 68 16 118/64 99 06/19/22 08:35 06/19/22 08:35 06/19/22 08:35 06/19/22 08:35 06/19/22 08:35 Lab Results Blood Type / Crossmatch: No Data to Display Complete Blood Count: No Data to Display Complete Metabolic Panel: No Data to Display Liver Function Panel: No Data to Display Coagulation Panel: No Data to Display Cardiac Panel: No Data to Display Arterial Blood Gas: No Data to Display Venous Blood Gas: No Data to Display Pancreas Panel: No Data to Display Thyroid Panel: No Data to Display Infectious Disease: No Data to Display Blood Cultures: No Data to Display Toxicology Panel: No Data to Display Imaging and Studies Imaging and Studies Study information below may be from another EMR and interpreted by another provider. Please see original notes in EMR for more complete details. Stress Test Summary: Date of Exam: 09/11/16Sex: M : 1950ge: 65 Exam(s) [id number] NM:MPI Resting & Stress GRP *[facility]* *[facility]* [address] [place] [address] Myocardial Perfusion Imaging - SPECT Paul protocol Date of study: 09/11/2016 *PATIENT PRESENTATION* Height: 172.7cm ((68in) ) Blood Pressure: Weight: 79.5kg ((175lb) ) BSA: 1.97m^2 Referring physician: Michael Dempsey MD Ordering physician: Sampson Akers Impressions: Abnormal study after pharmacologic stress. Summary: 1. Myocardial perfusion imaging: There is a small sized, moderately intense, predominantly fixed defect involving the apical inferior wall(s). This suggests small myocardial infarction and ischemia in the distribution of the right coronary artery. 2. The calculated left ventricular ejection fraction after stress: 59%. LV global systolic function is normal. There is hypokinesis involving the inferior wall(s) of the left ventricle. Anesthesia Assessment and Plan Anesthesia History Personal History: No History of Anesthesia Complications Family History: No Family History of Anesthesia Complications Exercise Tolerance Exercise Tolerance: Metabolic Equivalents>4 Pertinent Negatives Pertinent Negatives: No Symptoms of GERD and No Major Pulmonary Symptoms or Complaints Cardiac & Pulmonary Exam Cardiac Exam: Normal S1/S2 Heart Sounds Pulmonary Exam: Clear Bilateral Breath Sounds Implantable Cardiac Device Does patient have a Pacemaker or an ICD?: No Airway Exam Known Difficult Airway: No Mallampati Class: 1 Mouth Opening: Normal (> 3cm) Thyromental Distance: Greater than 3 cm Neck Range of Motion: Full ROM Neck Circumference: Normal Teeth Condition: Edentulous ASA Classification ASA Score: ASA 3 Emergency Case?: No NPO Status NPO Status: NPO Clears >2 hours, Solids >8 hours Anesthesia Plan Resuscitation Status: Full Code Anesthesia Technique: General Anesthesia Airway Planned: Natural Airway Monitors Used: Standard Monitors
[2022-06-19 09:18] VITALS: BMI 35.2
[2022-06-19] MEDS: Lactated Ringers 1,000 ML 80 ML IV (10:00)
[2022-06-19 10:50] VITALS: BP 102/61; PULSE 57; RESP 18; TEMP 36.4; O2SAT 97
--- NOTE | 2022-06-19 11:06 | W.ANESPOSTOP ---
Postoperative Evaluation Date, Time and Location Date Performed: 06/19/22 Time Performed: 10:55 Patient Location: Day Surgery Unit Vital Signs Most Recent Imported Vital Signs: Most Recent Vital Signs Temp Pulse Resp BP Pulse Ox 36.4 C L 57 L 18 102/61 97 06/19/22 10:50 06/19/22 10:50 06/19/22 10:50 06/19/22 10:50 06/19/22 10:50 Pain Score Most Recent Pain Score: Most Recent Pain Score Pain Level 2 06/19/22 10:50 Assessment Mental Status: Awake (Alert & Oriented to Patient Baseline) Airway and Respiratory Function: Patent airway with normal (patient baseline) respiratory exam Cardiovascular Function: Hemodynamically Stable Hydration Status: Adequately Hydrated Nausea & Vomiting: No Nausea or Vomiting Pain: Pt. Denies Any Pain Peripheral Nerve Block: Patient did not receive a nerve block
[2022-06-19 11:10] VITALS: TEMP 36.5
== END 2022-06-19 11:35 | disposition home or self-care (01) ==
PROVIDERS: PCP Nurse Practitioner; Visit Provider Surgery
PROC: 0DJD8ZZ Inspection of Lower Intestinal Tract, Via Natural or Artificial Opening Endoscopic (ICD-10-PCS; CPT 45378; principal; 2022-06-19 09:45)
DX: Z12.11 Encounter for screening for malignant neoplasm of colon (principal); Z86.010 Personal history of colon polyps; K57.30 Diverticulosis of large intestine without perforation or abscess without bleeding
CPT/HCPCS: G0105

== ENCOUNTER → 2022-08-29 13:32 | Outpatient (BNVA) | payer MEDICARE, SELFPAY | PROVIDERS: PCP Nurse Practitioner; Visit Provider Internal Medicine Cardiovascular Disease | DX: I25.10 Atherosclerotic heart disease of native coronary artery without angina pectoris (principal); E78.5 Hyperlipidemia, unspecified; Z98.890 Other specified postprocedural states | CPT/HCPCS: 99213 ==

== ENCOUNTER 2022-09-07 04:05 | Outpatient (CLI) | payer MEDICARE, SELFPAY ==
[2022-09-07 10:58] LABS: HCT 41.6 % (36.0-46.0); HGB 13.9 g/dL (11.2-15.7); MCH 29.4 pg (27.0-33.0); MCHC 33.4 % (32.0-36.0); MCV 88 fL (80-95); MPV 10.7 fL (8.0-11.0); Platelet Count 320 10^3/uL (130-400); RBC 4.72 10^6/uL (3.93-5.22); RDW 15.2 % (11.7-14.6); RDW-SD 48.8 fL; WBC 9.82 10^3/uL (4.4-10.8)
[2022-09-07 11:19] LABS: ALT 18 U/L (14-59); AST 25 U/L (15-37); Albumin 3.5 g/dL (3.4-5.0); Alkaline Phosphatase 77 U/L (46-116); Anion Gap 9.9 mmol/L (3-11); BUN 15 mg/dL (7-18); Bilirubin, Total 0.3 mg/dL (0.2-1.0); CO2 25.1 mmol/L (21.0-32.0); CREATININE 1.3 mg/dL (0.55-1.02); Calcium 9.2 mg/dL (8.5-10.1); Calculated LDL 55 mg/dL (<100); Chloride 106 mmol/L (98-107); Cholesterol 161 mg/dL (<200); Estimated GFR 44.51 (mL/min/1.73m2); Glucose 115 mg/dL (74-106); HDL Cholesterol 58 mg/dL (40-60); Potassium 4.1 mmol/L (3.5-5.1); Sodium 141 mmol/L (136-145); Total Protein 7.1 g/dL (6.4-8.2); Triglyceride 243 mg/dL (<150)
[2022-09-07 15:14] LABS: Lab Add On Test DONE
[2022-09-07 15:54] LABS: Hemoglobin A1C 5.5 % (<5.7)
== END 2022-09-07 04:06 | disposition home or self-care (01) ==
LOC: LBO 04:05
PROVIDERS: PCP Nurse Practitioner; Visit Provider Nurse Practitioner
DX: R73.01 Impaired fasting glucose (principal); E78.5 Hyperlipidemia, unspecified; I25.10 Atherosclerotic heart disease of native coronary artery without angina pectoris; I25.2 Old myocardial infarction
CPT/HCPCS: 36415; 80053; 80061; 85027; 83036

== ENCOUNTER 2022-10-23 03:28 | Outpatient (CLI) | payer MEDICARE, SELFPAY ==
[2022-10-23 22:34] LABS: Estradiol 61 pg/mL (See Note)
== END 2022-10-23 03:29 | disposition home or self-care (01) ==
LOC: LBO 03:28
PROVIDERS: PCP Nurse Practitioner; Visit Provider Physician Assistant
DX: F64.8 Other gender identity disorders (principal)
CPT/HCPCS: 36415; 82670

== ENCOUNTER 2023-04-17 18:43 | Outpatient (REF) | payer MEDICARE, SELFPAY ==
[2023-04-17 21:38] LABS: Bilirubin Negative (Negative); Blood Small (Negative); Clarity Clear (Clear); Glucose Negative (Negative); Ketones Negative (Negative); Leukocyte Esterase Negative (Negative); Nitrite Negative (Negative); Specific Gravity 1.025 (1.005-1.025); Urobilinogen 0.2 mg/dL (Up to 0.2)
[2023-04-17 22:13] LABS: Bacteria Negative HPF (Negative); Crystals Moderate Amorphous HPF (Negative); Epithelial Cells Rare HPF (Negative); Mucus Trace (Negative); Other Cells Negative (Negative); WBC 0-2 HPF (0-5)
[2023-04-17 22:14] LABS: C & S Indicated? No
== END 2023-04-17 18:44 | disposition home or self-care (01) ==
LOC: LBN 18:43
PROVIDERS: PCP Nurse Practitioner; Visit Provider Nurse Practitioner
DX: R82.998 Other abnormal findings in urine (principal); R39.89 Other symptoms and signs involving the genitourinary system
CPT/HCPCS: 81003; 81015; 87086

== ENCOUNTER → 2023-05-04 00:15 | Outpatient (CLI) | payer MEDICARE, SELFPAY ==
--- NOTE | 2023-05-04 08:15 | DI.MAMMO_ITS ---
Exam(s) MAMMO SCREENING EXAM: MAMMO SCREENING CLINICAL HISTORY: screening,z12.39 TECHNIQUE: Bilateral full field digital CC and MLO mammographic images were obtained with 3D tomosyn thesis and utilizing computer aided detection (CAD). COMPARISON: Available for comparison. FINDINGS: Masses/Architectural Distortion: None seen. Microcalcifications: No suspicious pleomorphic-type are seen. Skin Thickening/Nipple Retraction: None. IMPRESSION: 1. No significant interval change with no specific features of malignancy noted. 2. Unless there is more urgent need, screening mammography is recommended, as per [employer] guidelines. BI-RADS Category 1 - Negative Breast Density - Category C - Heterogeneously dense Breast density category C or D implies that the patient has dense breast tissue. Dense breast tissue is very common and is not abnormal but dense breast tissue can make it harder to find cancer on a ma mmogram. Also, dense breast tissue may increase their breast cancer risk. This information about the result of the mammogram report was provided to the patient to raise their awareness. Use this report when you speak with the patient about their risks for breast cancer, which includes their family hist ory. At that time, you may recommend for more screening tests (Ultrasound or MRI) as they might be us eful based on their risk. A negative radiographic report should not delay biopsy if a dominant or clinically suspicious mass is present. Up to ten percent of cancers are not identified on mammography. A negative report may reinforce clinical impression. Adenosis and dense breasts may obscure an underlying neoplasm. False positive reports average 6 to 10%. Patient will receive a letter notifying them of these results.
--- NOTE | 2023-05-04 11:16 | DI.DEXA_ITS ---
Exam(s) XR DEXA BONE DENSITY W/WO ALEC EXAM: XR DEXA BONE DENSITY W/WO ALEC CLINICAL HISTORY: Estrogen therapy,screening for osteoporosis in postmenopausal woman,z78.0 TECHNIQUE: HoloM_SOLUTION Horizon C densitometer analysis of left hip, lumbar spine and left forearm. Lat eral survey image of the thoracic and lumbar spine. COMPARISON: No exams were available for comparison FINDINGS: Lateral view of the thoracic and lumbar spine shows no evidence of compression fractures. Bone mineral density measurements of the lumbar spine correspond to a total T-score of 0.6, in the n ormal range. Bone mineral density measurements of the left hip correspond to a total T-score of 0.1 . The femoral neck T-score is -0.2, in the normal range . Theleft forearm bone mineral density measurements correspond to a T-score of the distal 3rd of -0.9, in the normal range.. IMPRESSION: Normal bone mineral density.
== END ==
PROVIDERS: PCP Nurse Practitioner; Visit Provider Nurse Practitioner
DX: Z12.39 Encounter for other screening for malignant neoplasm of breast (principal); Z78.0 Asymptomatic menopausal state; Z13.820 Encounter for screening for osteoporosis
CPT/HCPCS: 77063; 77067; 77080

== ENCOUNTER 2023-08-08 19:39 | Outpatient (REF) | payer MEDICARE, SELFPAY | END 2023-08-08 19:40 | disposition home or self-care (01) | LOC: NCHCN 19:39 | PROVIDERS: PCP Nurse Practitioner; Visit Provider Student in an Organized Health Care Education/Training Program | DX: R30.0 Dysuria (principal) | CPT/HCPCS: 87086 ==

== ENCOUNTER 2023-09-13 08:07 | Outpatient (CLI) | payer MEDICARE, SELFPAY ==
--- NOTE | 2023-09-13 08:00 | RT.EKG_ITS ---
APPROVED REPORT Exam: Resting ECG Reason for Exam: CAD Patient Location: O HR:59 bpm ECG Measurements Heart Rate 59 AXIS TX 169 P 144 QRSd 104 QRS 140 QT 417 T 106 QTc 414 Conclusion Sinus or ectopic atrial rhythm...P axis (-45,135) Inferior infarct, old...Q >35mS, II III aVF Lateral leads are also involved...lat Q or ST-T abnormalities Baseline wander in lead(s) V1,V3,V4 I have reviewed and interpreted ECG and agree with software generated interpretation.
== END 2023-09-13 08:08 | disposition home or self-care (01) ==
LOC: DI.CARD 08:08
PROVIDERS: PCP Nurse Practitioner; Visit Provider Internal Medicine Interventional Cardiology
DX: I25.10 Atherosclerotic heart disease of native coronary artery without angina pectoris (principal); I25.2 Old myocardial infarction
CPT/HCPCS: 93010

== ENCOUNTER → 2023-09-13 13:00 | Outpatient (BNVA) | payer MEDICARE, SELFPAY | PROVIDERS: PCP Nurse Practitioner; Visit Provider Internal Medicine Interventional Cardiology | DX: I10 Essential (primary) hypertension (principal); E78.01 Familial hypercholesterolemia; I25.10 Atherosclerotic heart disease of native coronary artery without angina pectoris | CPT/HCPCS: 93005; 99213 ==

== ENCOUNTER 2023-10-19 02:35 | Outpatient (CLI) | payer MEDICARE, SELFPAY ==
[2023-10-19 13:28] LABS: ALT 21 U/L (14-59); AST 27 U/L (15-37); Albumin 3.5 g/dL (3.4-5.0); Alkaline Phosphatase 79 U/L (46-116); BUN 14 mg/dL (7-18); Bilirubin, Total 0.5 mg/dL (0.2-1.0); CREATININE 1.2 mg/dL (0.55-1.02); Calcium 9.5 mg/dL (8.5-10.1); Calculated LDL 52 mg/dL (<100); Chloride 106 mmol/L (98-107); Cholesterol 143 mg/dL (<200); Glucose 114 mg/dL (74-106); HDL Cholesterol 61 mg/dL (40-60); Potassium 4.3 mmol/L (3.5-5.1); Sodium 141 mmol/L (136-145); Total Protein 7.3 g/dL (6.4-8.2); Triglyceride 151 mg/dL (<150)
== END 2023-10-19 02:36 | disposition home or self-care (01) ==
LOC: LBO 02:37
PROVIDERS: Absent Provider Nurse Practitioner; PCP Nurse Practitioner; Referring Provider Nurse Practitioner; Visit Provider Nurse Practitioner
DX: N18.30 Chronic kidney disease, stage 3 unspecified (principal); E78.01 Familial hypercholesterolemia; I25.10 Atherosclerotic heart disease of native coronary artery without angina pectoris
CPT/HCPCS: 36415; 80053; 80061

== ENCOUNTER 2024-01-16 05:17 | Outpatient (CLI) | payer MEDICARE, SELFPAY ==
[2024-01-16 22:16] LABS: Estradiol 55 pg/mL (See Note)
== END 2024-01-16 05:18 | disposition home or self-care (01) ==
LOC: LBO 05:17
PROVIDERS: PCP Nurse Practitioner; Visit Provider Physician Assistant
DX: F64.9 Gender identity disorder, unspecified (principal)
CPT/HCPCS: 36415; 82670

== ENCOUNTER → 2024-02-22 01:51 | Outpatient (CLI) | payer MEDICARE, SELFPAY ==
--- NOTE | 2024-02-22 13:55 | DI.RAD_ITS ---
Exam(s) XR HIP RT COMPLETE AP PELVIS EXAM: XR HIP RT COMPLETE AP PELVIS CLINICAL HISTORY: right hip pain, sometimes severe, RT HIP PAIN, M25.551. TECHNIQUE: 2D digital imaging was performed. COMPARISON: CR XR DEXA BONE DENSITY W/WO ALEC from 05/04/2023 FINDINGS: 3 views No evidence of pelvic nor hip fracture. Sacroiliac joints appear unremarkable. There is no hip join t space narrowing. Some mild capsular calcification is noted in the right hip above the greater troc hanter level. No significant osseous lesions. IMPRESSION: Mild osseous findings as above. DATA REPOSITORY: RADIATION DOSE DELIVERED:
== END ==
PROVIDERS: PCP Nurse Practitioner; Visit Provider Nurse Practitioner
DX: M25.551 Pain in right hip (principal)
CPT/HCPCS: 73502

== ENCOUNTER 2024-07-07 16:04 | Outpatient (CLI) | payer MEDICARE, SELFPAY ==
--- NOTE | 2024-07-07 14:15 | DI.RAD_ITS ---
Exam(s) XR KNEE LT 4V AP,LAT,SEB,PAT EXAM: XR KNEE LT 4V AP,LAT,SEB,PAT CLINICAL HISTORY: Left knee pain. TECHNIQUE: 2D digital imaging was performed. Three views. COMPARISON: No exams were available for comparison FINDINGS: BONES: No acute fracture is present. No bony destructive lesion is seen. Small enthesophyte at al driceps insertion on the patella. Tibial tubercle is prominent. JOINTS: The knee is normally aligned. No joint effusion is seen. Posterior joint space loose bodies. Spurring at the articular aspect of the patella. The patellofemoral joint space is maintained. The re is moderate to severe narrowing of the lateral femoral tibial joint. There is mild spurring from the femoral condyles and tibial plateaus. SOFT TISSUE: Normal. IMPRESSION: Moderate severe degenerative changes of the lateral femoral tibial joint. Posterior joint space loos e bodies. DATA REPOSITORY: RADIATION DOSE DELIVERED:
== END 2024-07-07 16:05 | disposition home or self-care (01) ==
LOC: DIORS 16:04
PROVIDERS: PCP Nurse Practitioner; Referring Provider Nurse Practitioner; Visit Provider Student in an Organized Health Care Education/Training Program
DX: M25.562 Pain in left knee (principal); M16.11 Unilateral primary osteoarthritis, right hip
CPT/HCPCS: 20611; 99213; J1010; 73564

== ENCOUNTER 2024-07-13 12:08 | Emergency (ER) | payer MEDICARE, SELFPAY ==
[2024-07-13 12:04] VITALS: BP 117/43; PULSE 61; RESP 18; TEMP 36.6; O2SAT 100
--- NOTE | 2024-07-13 12:15 | DI.RAD_ITS ---
Exam(s) XR HIP RT COMPLETE AP PELVIS EXAM: XR HIP RT COMPLETE AP PELVIS CLINICAL HISTORY: Pain. TECHNIQUE: 2D digital imaging was performed. COMPARISON: CR XR HIP RT COMPLETE AP PELVIS from 09/30/2019 FINDINGS: Two views No evidence of pelvic nor acute hip fractures nor hip joint space narrowing. Some capsular calcification is again noted in the lateral aspect of the right hip was is unchanged fr om September 2019 images. Sacroiliac joints appear unremarkable. IMPRESSION: No acute osseous findings in the pelvis and hips. DATA REPOSITORY: RADIATION DOSE DELIVERED:
--- NOTE | 2024-07-13 12:21 | W.ED.GENAD ---
Discharge Plan Disposition Patient Disposition: Home Condition: Stable Discharge Details Clinical Impression: Degenerative joint disease of right hip Primary Care Provider: Yara Chaudhry ED Provider: Ary Rueda Home Meds and New Rx's Prescriptions: New oxycodone 5 mg tablet 5 mg PO Q8H PRN (Reason: pain) Qty: 7 0RF Rx Instructions: Take 1 tablet by mouth every 8 hours as needed for pain. Take with food no operating heavy machinery while on this medication. Continued omega-3 fatty acids Capsule 1,250 mg PO DAILY estradiol 0.05 mg/24 hr patch semiweekly 1 patch transdermal .2x/week fluticasone propionate [Flonase Allergy Relief] 50 mcg/actuation spray,suspension 1 spray intranasal DAILY Rx Instructions: administer into each nostril multivitamin [Daily Multi-Vitamin] 1 EACH tablet 1 ea PO DAILY aspirin 81 mg tablet,delayed release (DR/EC) 81 mg PO DAILY Qty: 60 estradiol 0.1 mg/24 hr patch semiweekly 1 patch TD .twice weekly acetaminophen 500 mg tablet 1,000 mg PO Q6H metoprolol succinate 100 mg tablet extended release 24 hr See Rx Instructions .ROUTE .COMPLEX Qty: 180 3RF Dose Instruction: TAKE 1 TABLET BY MOUTH TWICE DAILY Rx Instructions: TAKE 1 TABLET BY MOUTH TWICE DAILY salon pas Discharge Instructions Instructions: Osteoarthritis, Hip pain in adults Additional Instructions: Continue to follow-up as instructed by orthopedics. At this time x-rays are within normal limits. Do suspect your pain is from the degenerative arthritis that you have. You may try Voltaren gel or topical diclofenac which is an anti-inflammatory. Please take Tylenol or Ibuprofen with food every 4-6 hours as needed for pain and swelling. you may also get lidocaine patches over te counter. Follow up with primary care provider in 3-5 days. Return to ED sooner if any worsening or concerns. Hold off on Physical therapy if still having moderate pain. Referrals: Yara Chaudhry NP [Primary Care Provider] - 1 week HPI General Mode of arrival: EMS. Date/Time Provider Initiated Documentation: 07/13/24 12:14. Limitations to Documentation: no limitations. Information obtained by: patient, EMS, RN notes reviewed and old records reviewed. HPI Narrative: 73-year-old female with a past medical history of chronic right hip pain over the last 6 years presents to the ER with chief complaint of increased pain since Sunday. She get a steroid shot on Sunday she did have physical therapy on Sunday she reports severe increase in pain to that she was in a pass out. She did take a gram of Tylenol at 10:30 AM along with her normal a.m. meds. Denies any falls or injuries to the area denies any problems urinating burning with urination or loss of bowel or bladder control. Denies any radiation of the pain. Related Data Home Medications ?Medication ?Instructions ?Recorded ?Confirmed multivitamin (Daily Multi-Vitamin 1 ea PO DAILY 06/29/16 07/13/24 tablet) aspirin 81 mg tablet,delayed 81 mg PO DAILY #60 tabs 08/30/18 07/13/24 release acetaminophen 500 mg tablet 1,000 mg PO Q6H 10/29/19 07/13/24 estradiol 0.1 mg/24 hr semiweekly 1 patch transdermal .twice weekly 10/29/19 07/13/24 transdermal patch omega-3 fatty acids 1,250 mg PO DAILY 08/23/21 07/13/24 metoprolol succinate 100 mg See Rx Instructions .Route 09/18/23 07/13/24 tablet,extended release 24 hr .COMPLEX #180 tabs estradiol 0.05 mg/24 hr semiweekly 1 patch transdermal .2x/week 02/18/24 07/13/24 transdermal patch fluticasone propionate 50 1 spray intranasal DAILY 02/18/24 07/13/24 mcg/actuation nasal spray,suspension (Flonase Allergy Relief) oxycodone 5 mg tablet 5 mg PO Q8H PRN pain #7 tabs 07/13/24 salon pas 07/13/24 Previous Rx's ?Medication ?Instructions ?Recorded metoprolol succinate 100 mg See Rx Instructions .Route 09/18/23 tablet,extended release 24 hr .COMPLEX #180 tabs oxycodone 5 mg tablet 5 mg PO Q8H PRN pain #7 tabs 07/13/24 Allergies Allergy/AdvReac Type Severity Reaction Status Date / Time atorvastatin AdvReac Severe Mylagias Verified 07/13/24 12:13 pravastatin AdvReac Severe Mylagias Verified 07/13/24 12:13 rosuvastatin AdvReac myalgias Verified 07/13/24 12:13 General Stated Complaint: Orthopedic REÉNE: 3 Review of Systems All systems reviewed & are unremarkable except as noted in HPI and below Musculoskeletal Musculoskeletal: Reports as per HPI and Reports arthralgias Exam Const General: cooperative and well developed Nutritional Appearance: well nourished Orientation: alert, awake and oriented x3 Extrem Right lower extremity: normal capillary refill, no joint enlargement and hip/thigh Details: tenderness Course Vital Signs Vital signs: Vital Signs Temperature 36.6 C 07/13/24 12:04 Pulse 61 07/13/24 12:04 Respiratory Rate 18 07/13/24 12:04 Blood Pressure 117/43 L 07/13/24 12:04 Pulse Oximetry 100 07/13/24 12:04 Temperature 36.6 C 07/13/24 12:04 Temperature Source Oral 07/13/24 12:04 Pulse 61 07/13/24 12:04 Respiratory Rate 18 07/13/24 12:04 Blood Pressure 117/43 L 07/13/24 12:04 Blood Pressure Position Supine 07/13/24 12:04 Pulse Oximetry 100 07/13/24 12:04 Oxygen Delivery Method Room Air 07/13/24 12:04 Oxygen Flow Rate 0 07/13/24 12:04 Pain Level 9 07/13/24 12:04 Medical Decision Making 73-year-old female with a past medical history of chronic right hip pain over the last 6 years presents to the ER with chief complaint of increased pain since Sunday. She get a steroid shot on Sunday she did have physical therapy on Sunday she reports severe increase in pain to that she was in a pass out. She did take a gram of Tylenol at 10:30 AM along with her normal a.m. meds. Denies any falls or injuries to the area denies any problems urinating burning with urination or loss of bowel or bladder control. Denies any radiation of the pain. X-ray of right hip and AP pelvis ordered, oxycodone and Zofran p.o. Patient reevaluation she reports she feels somewhat better. Discussed x-ray results. Will have patient perform ambulatory trial. Road test successful, patient ambulatory without assistance upon discharge. This text was generated using [employer]ributes.comation system, please disregard any oddities of phrase or misspellings. Imaging Data Radiologic Study: Imaging: X-Ray Radiologist's impression: PROCEDURE INFORMATION: Exam: XR Right Hip Exam date and time: 07/13/2024 12:43 PM Age: 73 years old Clinical indication: Hip pain; Right hip TECHNIQUE: Imaging protocol: Radiologic exam of the right hip. Views: 2 or 3 views hip with pelvis when performed. COMPARISON: CR XR HIP RT COMPLETE AP PELVIS 02/22/2024 1:32 PM FINDINGS: Bones/joints: Degenerative changes in both hips. There is no evidence of acute fracture.There is no evidence of malalignment or dislocation. Soft tissues: Unremarkable. IMPRESSION: There is no evidence of acute fracture.There is no evidence of malalignment or dislocation. Thank you for allowing us to participate in the care of your patient. Dictated and Authenticated by: Aleida Bagley MD Quality:SDOH Health Related Social Needs: No Data to Display PFSH All Active Problems (Updated 07/13/24 @ 13:45 by Ary Rueda NP) 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 55 (2021) Snoring (Acute) 07/17/23 OV with William Gamboa NP 09/27/23 CPAP ordered by William Gamboa NP Postnasal drip (Acute) Nasal congestion (Acute) Dry eye syndrome (Acute ~12/2021) 12/26/21 [facility] Transgender, S/P sex reassignment surgery (Acute) Family history of heart disease (Acute) History of heart attack (Acute) Irregular heart beat (Acute) Lung cancer screening declined by patient (Acute) Myofascial pain (Acute) Adjustment disorder, unspecified (Chronic 08/08/16) Tubular adenoma of colon (Chronic) [id number] transgender person (Chronic) Orchiectomy 11/2018 [facility] [place] Screening for AAA (abdominal aortic aneurysm) (Acute) Low back pain (Acute) Musculoskeletal pain (Acute) Bleeding hemorrhoid (Acute) Hyperlipidemia (Chronic) CAD (coronary artery disease) (Chronic 06/27/17) Medical History Hypertension Adjustment disorder Surgical History History of colonoscopy (~06/2022) Hx of cataract extraction History of orchiectomy, bilateral 11/2018 Repair, ACL (~1988) Colonoscopy - IV Sedation (04/11/17) Coronary Artery Bypass Gaft (CABG) 2016 f/u dr. leblanc- telehealth 09/2020 Appendectomy (~1973) Family History Mother Diabetes High cholesterol Family history of stroke or transient ischemic attack in mother Heart disease Father Arthritis Emphysema, unspecified Sister Kidney problem Brother Epileptic seizure Grandfather No problems noted. 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
[2024-07-13] MEDS: Ondansetron O.D.T. 4 MG TABEF PO (12:49)
[2024-07-13] MEDS: oxyCODONE 5 MG TAB PO (12:49)
--- NOTE | 2024-07-13 13:09 | DI.VRAD_ITS ---
PROCEDURE INFORMATION: Exam: XR Right Hip Exam date and time: 07/13/2024 12:43 PM Age: 73 years old Clinical indication: Hip pain; Right hip TECHNIQUE: Imaging protocol: Radiologic exam of the right hip. Views: 2 or 3 views hip with pelvis when performed. COMPARISON: CR XR HIP RT COMPLETE AP PELVIS 02/22/2024 1:32 PM FINDINGS: Bones/joints: Degenerative changes in both hips. There is no evidence of acute fracture.There is no evidence of malalignment or dislocation. Soft tissues: Unremarkable. IMPRESSION: There is no evidence of acute fracture.There is no evidence of malalignment or dislocation. Dictated and Authenticated by: Aleida Bagley MD. Ordering:SHAKILA Mcallister MD
[2024-07-13 14:09] VITALS: BP 117/43; PULSE 61; RESP 18; TEMP 36.6
== END 2024-07-13 14:10 | disposition home or self-care (01) ==
PROVIDERS: Emergency Provider Registered Nurse Emergency; PCP Nurse Practitioner
DX: M16.11 Unilateral primary osteoarthritis, right hip (principal); I12.9 Hypertensive chronic kidney disease with stage 1 through stage 4 chronic kidney disease, or unspecified chronic kidney disease; N18.30 Chronic kidney disease, stage 3 unspecified; I25.10 Atherosclerotic heart disease of native coronary artery without angina pectoris; Z79.82 Long term (current) use of aspirin; Z87.891 Personal history of nicotine dependence
CPT/HCPCS: 99283; 73502

== ENCOUNTER 2024-08-11 01:36 | Outpatient (CLI) | payer MEDICARE, SELFPAY ==
--- NOTE | 2024-08-11 07:00 | DI.MRI_ITS ---
Exam(s) MR LOWER JOINT RT WO EXAM: MR LOWER JOINT RT WO CLINICAL HISTORY: R HIP PAIN,djd rt hip, m16.11 TECHNIQUE: Multiplanar multisequence MRI of right hip was performed COMPARISON: CR,XR XR HIP RT COMPLETE AP PELVIS from 07/13/2024 FINDINGS: Bones: There is no evidence of a fracture or avascular necrosis. There is a small amount of fluid i n the right hip joint. No bone marrow edema is seen. The visualized SI joints and symphysis pubis ar e well maintained. Musculotendinous structures: Musculotendinous structures demonstrate no abnormality. There is mild generalized muscular fatty atrophy. Intrapelvic structures demonstrate no significant abnormality. Joint space: There is no evidence of a labral tear on this noncontrast examination in the right hip. There is mild narrowing of the superior joint space on the right compared to the left. IMPRESSION: 1. There is a very small right joint effusion. There is also mild narrowing of the superior joint sp lissy of the right hip. 2. No evidence of an occult fracture or avascular necrosis. 3. No evidence of a tendon tear. DATA REPOSITORY:
== END 2024-08-11 01:56 ==
LOC: DI 01:36
PROVIDERS: PCP Nurse Practitioner; Visit Provider Student in an Organized Health Care Education/Training Program
DX: M16.11 Unilateral primary osteoarthritis, right hip (principal)
CPT/HCPCS: 73721

== ENCOUNTER → 2024-08-21 14:19 | Outpatient (BNVA) | payer MEDICARE, SELFPAY | PROVIDERS: PCP Nurse Practitioner; Referring Provider Nurse Practitioner | DX: M17.12 Unilateral primary osteoarthritis, left knee (principal); M16.11 Unilateral primary osteoarthritis, right hip | CPT/HCPCS: 99214 ==

== ENCOUNTER → 2024-09-11 11:07 | Outpatient (BNVA) | payer MEDICARE, SELFPAY | PROVIDERS: PCP Nurse Practitioner; Visit Provider Internal Medicine Cardiovascular Disease | DX: I25.10 Atherosclerotic heart disease of native coronary artery without angina pectoris (principal) | CPT/HCPCS: 99213 ==

== ENCOUNTER 2024-10-27 04:24 | Outpatient (CLI) | payer MEDICARE, SELFPAY ==
[2024-10-27 12:40] LABS: Hemoglobin A1C 5.1 % (<5.7)
[2024-10-27 13:00] LABS: ALT 25 U/L (14-59); AST 29 U/L (15-37); Albumin 3.1 g/dL (3.4-5.0); Alkaline Phosphatase 77 U/L (46-116); Anion Gap 9.4 mmol/L (3-11); BUN 14 mg/dL (7-18); Bilirubin, Total 0.5 mg/dL (0.2-1.0); CO2 24.6 mmol/L (21.0-32.0); CREATININE 1.1 mg/dL (0.55-1.02); Calcium 9.4 mg/dL (8.5-10.1); Calculated LDL 189 mg/dL (<100); Chloride 108 mmol/L (98-107); Cholesterol 279 mg/dL (<200); Estimated GFR 53.72 (mL/min/1.73m2); Glucose 104 mg/dL (74-106); HDL Cholesterol 52 mg/dL (>or=50); Potassium 4.5 mmol/L (3.5-5.1); Sodium 142 mmol/L (136-145); Total Protein 6.9 g/dL (6.4-8.2); Triglyceride 194 mg/dL (<150)
== END 2024-10-27 04:25 | disposition home or self-care (01) ==
LOC: LBO 04:24
PROVIDERS: Absent Provider Nurse Practitioner; PCP Nurse Practitioner; Referring Provider Nurse Practitioner; Visit Provider Nurse Practitioner
DX: R73.01 Impaired fasting glucose (principal); R53.83 Other fatigue; E66.9 Obesity, unspecified; E78.5 Hyperlipidemia, unspecified; N18.30 Chronic kidney disease, stage 3 unspecified; I25.2 Old myocardial infarction
CPT/HCPCS: 36415; 80053; 80061; 83036; 84443

== ENCOUNTER → 2024-11-20 13:55 | Outpatient (BNVA) | payer MEDICARE, SELFPAY | PROVIDERS: PCP Nurse Practitioner; Visit Provider Student in an Organized Health Care Education/Training Program | DX: M17.12 Unilateral primary osteoarthritis, left knee (principal); M25.551 Pain in right hip | CPT/HCPCS: 99213 ==

== ENCOUNTER 2025-04-01 04:02 | Outpatient (CLI) | payer MEDICARE, SELFPAY ==
[2025-04-01 14:06] LABS: Calculated LDL 164 mg/dL (<100); Cholesterol 248 mg/dL (<200); HDL Cholesterol 45 mg/dL (>or=50); Triglyceride 197 mg/dL (<150)
== END 2025-04-01 04:03 | disposition home or self-care (01) ==
LOC: LBO 04:02
PROVIDERS: PCP Nurse Practitioner; Visit Provider Nurse Practitioner Family
DX: E78.01 Familial hypercholesterolemia (principal)
CPT/HCPCS: 36415; 80061

== ENCOUNTER 2025-05-29 13:30 | Emergency (ER) | payer MEDICARE, SELFPAY ==
[2025-05-29 13:34] VITALS: BP 126/64; PULSE 58; RESP 16; TEMP 37.1; O2SAT 98
[2025-05-29 13:38] VITALS: BP 126/64; PULSE 58; RESP 16; TEMP 37.1; O2SAT 98
--- NOTE | 2025-05-29 14:00 | DI.US_ITS ---
Exam(s) US LOWER EXTREMITY VENOUS LT EXAM: US LOWER EXTREMITY VENOUS LT CLINICAL HISTORY: left leg swelling TECHNIQUE: Grayscale, color, and doppler imaging of the deep venous system of the left lower extremity was performed. COMPARISON: US POCUS EXAM from 07/07/2024 FINDINGS: There is no evidence of intraluminal thrombus and there is normal compression and augmentation demonstrated within the common femoral vein, femoral vein, and popliteal vein. In the ipsilateral calf the interrogated veins also exhibit normal compression/ augmentation properties. The ipsilateral saphenofemoral junction is patent. IMPRESSION: 1. No evidence of DVT in the left lower extremity. DATA REPOSITORY:
--- NOTE | 2025-05-29 14:01 | W.ED.GENAD ---
Discharge Plan Disposition Patient Disposition: Home Condition: Stable Discharge Details Clinical Impression: Left leg swelling Primary Care Provider: Yara Chaudhry ED Provider: Michael Mcknight Home Meds and New Rx's Prescriptions: New amoxicillin-pot clavulanate 875-125 mg tablet 1 tab PO BID Qty: 14 0RF Continued omega-3 fatty acids Capsule 1,250 mg PO DAILY estradiol 0.05 mg/24 hr patch semiweekly 1 patch transdermal .2x/week fluticasone propionate [Flonase Allergy Relief] 50 mcg/actuation spray,suspension 1 spray intranasal DAILY Rx Instructions: administer into each nostril multivitamin [Daily Multi-Vitamin] 1 EACH tablet 1 ea PO DAILY aspirin 81 mg tablet,delayed release (DR/EC) 81 mg PO DAILY Qty: 60 estradiol 0.1 mg/24 hr patch semiweekly 1 patch TD .twice weekly acetaminophen 500 mg tablet 1,000 mg PO Q6H gabapentin 300 mg capsule 300 mg PO QHS Qty: 90 3RF metoprolol succinate 100 mg tablet extended release 24 hr See Rx Instructions .ROUTE .COMPLEX Qty: 180 3RF Dose Instruction: TAKE 1 TABLET BY MOUTH TWICE DAILY Rx Instructions: TAKE 1 TABLET BY MOUTH TWICE DAILY ezetimibe [Zetia] 10 mg tablet 10 mg PO DAILY Qty: 90 3RF Discharge Instructions Additional Instructions: Your lab work and ultrasound did not show any concerning findings at this time. When you are sitting or lying down keeping the leg elevated can help. If not improving next week follow-up with your primary care provider. If you feel more ill or have new symptoms such as high fevers or difficulty breathing return to the emergency department for reevaluation. HPI General Date/Time Provider Initiated Documentation: 05/29/25 13:37. Limitations to Documentation: no limitations. Information obtained by: patient. History of Present Illness 74 year old F presents to the emergency department with the chief complaint of left leg swelling, described as moderate, Patient started experiencing this week(s) (1) and it has been constant. No relieving factors improve symptom(s), No exacerbating factors reported . Patient notes no other symptoms.. Patient did receive the following treatments prior to arrival, none Related Data Home Medications ?Medication ?Instructions ?Recorded ?Confirmed multivitamin (Daily Multi-Vitamin 1 ea PO DAILY 06/29/16 05/29/25 tablet) aspirin 81 mg tablet,delayed 81 mg PO DAILY #60 tabs 08/30/18 05/29/25 release acetaminophen 500 mg tablet 1,000 mg PO Q6H 10/29/19 05/29/25 estradiol 0.1 mg/24 hr semiweekly 1 patch transdermal .twice weekly 10/29/19 05/29/25 transdermal patch omega-3 fatty acids 1,250 mg PO DAILY 08/23/21 05/29/25 estradiol 0.05 mg/24 hr semiweekly 1 patch transdermal .2x/week 02/18/24 05/29/25 transdermal patch fluticasone propionate 50 1 spray intranasal DAILY 02/18/24 05/29/25 mcg/actuation nasal spray,suspension (Flonase Allergy Relief) gabapentin 300 mg capsule 300 mg PO QHS #90 caps 08/11/24 05/29/25 metoprolol succinate 100 mg See Rx Instructions .Route 09/15/24 05/29/25 tablet,extended release 24 hr .COMPLEX #180 tabs ezetimibe 10 mg tablet (Zetia) 10 mg PO DAILY #90 tabs 10/30/24 05/29/25 amoxicillin 875 mg-potassium 1 tab PO BID #14 tabs 05/29/25 clavulanate 125 mg tablet Previous Rx's ?Medication ?Instructions ?Recorded gabapentin 300 mg capsule 300 mg PO QHS #90 caps 08/11/24 metoprolol succinate 100 mg See Rx Instructions .Route 09/15/24 tablet,extended release 24 hr .COMPLEX #180 tabs ezetimibe 10 mg tablet (Zetia) 10 mg PO DAILY #90 tabs 10/30/24 amoxicillin 875 mg-potassium 1 tab PO BID #14 tabs 05/29/25 clavulanate 125 mg tablet Allergies Allergy/AdvReac Type Severity Reaction Status Date / Time atorvastatin AdvReac Severe Mylagias Verified 05/29/25 13:38 pravastatin AdvReac Severe Mylagias Verified 05/29/25 13:38 rosuvastatin AdvReac myalgias Verified 05/29/25 13:38 General Stated Complaint: Cellulitis RENÉE: 3 Review of Systems All systems reviewed & are unremarkable except as noted in HPI and below Constitutional Constitutional: Denies chills, Denies fever(s) and Denies weakness Cardiovascular Cardiovascular: Denies chest pain and Denies dyspnea Respiratory Respiratory: Denies cough and Denies dyspnea Neurologic Neurologic: Denies weakness Exam Const General: no acute distress Orientation: alert HENMT Head: normal to inspection Ears: external ears normal General nose exam: external nose normal Mouth: moist mucous membranes Eyes General: appearance normal, both eyes and all related structures Neck Neck: normal visual inspection Resp Effort & Inspection: normal respiratory effort and able to speak in complete sentences Cardio Rate: regular rate Neuro General: patient alert and patient oriented x3 Extrem General: full ROM and capillary refill normal Psych Mental Status: mental status grossly normal Course Vital Signs Vital signs: Vital Signs Temperature 37.1 C 05/29/25 13:34 Pulse 58 L 05/29/25 13:34 Respiratory Rate 16 05/29/25 13:34 Blood Pressure 126/64 05/29/25 13:34 Pulse Oximetry 98 05/29/25 13:34 Temperature 37.1 C 05/29/25 13:38 Pulse 58 L 05/29/25 13:38 Respiratory Rate 16 05/29/25 13:38 Blood Pressure 126/64 05/29/25 13:38 Pulse Oximetry 98 05/29/25 13:38 Pain Level 0 05/29/25 13:38 Medical Decision Making 74-year-old transgender woman on hormone therapy, CKD, who comes in with 1 week of left leg swelling. Denies any recent travel or immobilization. Denies any fevers or chills or difficulty breathing or chest pain. Her left leg does have edema up to the mid calf compared to the right. She has very mild redness on the medial distal right leg. She has full range of motion of the knee and ankle and intact sensation. Concern for DVT versus cellulitis, will check a CBC, CMP and an ultrasound. She has no fevers and appears well so I doubt entities such as sepsis. Labs show no concerning findings and ultrasound negative for DVT or other concerning findings. Patient stable. Unclear if erythematous cellulitis but given she does not have a DVT and will initiate oral antibiotics. She is stable for discharge and will follow-up with her PCP if not improving and return precautions given. 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 55 (2021) Snoring (Acute) 07/17/23 OV with William Gamboa NP 09/27/23 CPAP ordered by William Gamboa NP Postnasal drip (Acute) Nasal congestion (Acute) Dry eye syndrome (Acute ~12/2021) 12/26/21 [facility] Transgender, S/P sex reassignment surgery (Acute) Family history of heart disease (Acute) History of heart attack (Acute) Irregular heart beat (Acute) Lung cancer screening declined by patient (Acute) Myofascial pain (Acute) Adjustment disorder, unspecified (Chronic 08/08/16) Tubular adenoma of colon (Chronic) [id number]-[id number] transgender person (Chronic) Orchiectomy 11/[address] [facility] [place] Screening for AAA (abdominal aortic aneurysm) (Acute) Low back pain (Acute) Musculoskeletal pain (Acute) Bleeding hemorrhoid (Acute) Hyperlipidemia (Chronic) CAD (coronary artery disease) (Chronic 06/27/17) Medical History Hypertension Adjustment disorder Surgical History History of colonoscopy (~06/2022) Hx of cataract extraction History of orchiectomy, bilateral 11/2018 Repair, ACL (~1988) Colonoscopy - IV Sedation (04/11/17) Coronary Artery Bypass Gaft (CABG) 2016 f/u dr. leblanc- telehealth 09/2020 Appendectomy (~1973) Family History Mother Diabetes High cholesterol Family history of stroke or transient ischemic attack in mother Heart disease Father Arthritis Emphysema, unspecified Sister Kidney problem Brother Epileptic seizure Grandfather No problems noted. 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
[2025-05-29 14:30] LABS: Abs Immature Grans 0.05 10^3/uL (0.0-0.06); HCT 40.8 % (36.0-46.0); HGB 14.5 g/dL (11.2-15.7); Immature Grans % 0.6 %; MCH 32.1 pg (27.0-33.0); MCHC 35.5 % (32.0-36.0); MCV 90 fL (80-95); MPV 10.6 fL (8.0-11.0); Platelet Count 322 10^3/uL (130-400); RBC 4.52 10^6/uL (3.93-5.22); RDW 14.4 % (11.7-14.6); RDW-SD 47.2 fL; WBC 8.39 10^3/uL (4.4-10.8)
[2025-05-29 14:56] LABS: ALT 38 U/L (14-59); AST 39 U/L (15-37); Albumin 3.2 g/dL (3.4-5.0); Alkaline Phosphatase 112 U/L (46-116); Anion Gap 11.4 mmol/L (3-11); BUN 16 mg/dL (7-18); Bilirubin, Total 0.4 mg/dL (0.2-1.0); CO2 23.6 mmol/L (21.0-32.0); Calcium 9.3 mg/dL (8.5-10.1); Chloride 104 mmol/L (98-107); Estimated GFR 78.24 (mL/min/1.73m2); Glucose 115 mg/dL (74-106); Potassium 4.3 mmol/L (3.5-5.1); Sodium 139 mmol/L (136-145); Total Protein 7.3 g/dL (6.4-8.2)
[2025-05-29] MEDS: Amoxicillin 875/Clav. 125 TAB PO (16:07)
== END 2025-05-29 16:19 | disposition home or self-care (01) ==
PROVIDERS: Emergency Provider Emergency Medicine; PCP Nurse Practitioner
DX: R22.42 Localized swelling, mass and lump, left lower limb (principal)
CPT/HCPCS: 99284 ×2; 80053; 85025; 93971

== ENCOUNTER → 2025-06-08 13:20 | Outpatient (BNVA) | payer MEDICARE, SELFPAY | PROVIDERS: PCP Nurse Practitioner Family; Referring Provider Nurse Practitioner Family; Visit Provider Student in an Organized Health Care Education/Training Program | DX: K64.8 Other hemorrhoids (principal) | CPT/HCPCS: 99213 ==

== ENCOUNTER → 2025-07-01 01:19 | Outpatient (CLI) | payer MEDICARE, SELFPAY ==
--- NOTE | 2025-07-01 13:15 | DI.RAD_ITS ---
Exam(s) XR LUMBAR SPINE COMPLETE EXAM: XR LUMBAR SPINE COMPLETE CLINICAL HISTORY: acute low back pain right side,m54.50. TECHNIQUE: 2D digital imaging was performed. COMPARISON: CR XR DEXA BONE DENSITY W/WO ALEC from 05/04/2023 FINDINGS: Five views No evidence of fracture, listhesis, nor pars interarticularis defects. Disc spaces exhibit normal height although there is multilevel anterior osseous lipping and bridging right-sided syndesmophyte is noted at L1-2 level. There are only mild degenerative changes in the facet joints. SI joints appear unremarkable. Bone density age-appropriate. No osseous lesions. No scoliosis. Calcifications noted in the abdominal aorta and iliac arteries. IMPRESSION: Mild multilevel findings as described above. Clinically indicated further study with MRI can be performed DATA REPOSITORY: RADIATION DOSE DELIVERED:
== END ==
LOC: DI 01:19
PROVIDERS: PCP Nurse Practitioner Family; Visit Provider Nurse Practitioner Family
DX: M54.50 Low back pain, unspecified (principal)
CPT/HCPCS: 72110

== ENCOUNTER 2025-07-03 10:25 | Day surgery (SDC) | payer MEDICARE, SELFPAY ==
[2025-07-03 10:55] VITALS: BP 128/73; PULSE 63; RESP 16; TEMP 36.1; O2SAT 96
[2025-07-03] MEDS: Lactated Ringers 1,000 ML 80 ML IV (11:37)
--- NOTE | 2025-07-03 12:38 | W.ANESPRE ---
General Info Date of Service Date Performed: 07/03/25 Height: 5 ft 8 in Weight: 106.4 kg Body Mass Index (BMI): 35.6 Surgical Procedure: Operation Date: 07/03/25 11:40 Proposed Procedure Side Surgeon p Hemorrhoidectomy Megan Orozco MD Actual Procedure Side Surgeon p Hemorrhoidectomy Not Applicable Megan Orozco MD Meds Allergies and Home Medications Allergies Allergy/AdvReac Type Severity Reaction Status Date / Time atorvastatin AdvReac Severe Mylagias Verified 07/03/25 11:22 pravastatin AdvReac Severe Mylagias Verified 07/03/25 11:22 rosuvastatin AdvReac myalgias Verified 07/03/25 11:22 Home Medication Medication Instructions Recorded multivitamin (Daily Multi-Vitamin 1 ea PO DAILY 06/29/16 tablet) aspirin 81 mg tablet,delayed 81 mg PO DAILY #60 tabs 08/30/18 release acetaminophen 500 mg tablet 1,000 mg PO Q6H 10/29/19 estradiol 0.1 mg/24 hr semiweekly 1 patch transdermal .twice weekly 10/29/19 transdermal patch omega-3 fatty acids 1,250 mg PO DAILY 08/23/21 estradiol 0.05 mg/24 hr semiweekly 1 patch transdermal .2x/week 02/18/24 transdermal patch fluticasone propionate 50 1 spray intranasal DAILY 02/18/24 mcg/actuation nasal spray,suspension (Flonase Allergy Relief) gabapentin 300 mg capsule 300 mg PO QHS #90 caps 08/11/24 metoprolol succinate 100 mg See Rx Instructions .Route 09/15/24 tablet,extended release 24 hr .COMPLEX #180 tabs ezetimibe 10 mg tablet (Zetia) 10 mg PO DAILY #90 tabs 10/30/24 hydrocortisone acetate 25 mg 25 mg AK BID #24 ea 06/04/25 rectal suppository (Anusol-HC) triamcinolone acetonide 0.1 % 1 applic topical DAILY #80 grams 06/04/25 topical ointment Current Visit Medications: Current Medications Generic Name Dose Route Start Last Admin Trade Name Freq PRN Reason Stop Dose Admin Ringer's Solution 1,000 mls @ 80 mls/hr 07/03/25 06:00 07/03/25 11:37 IV 07/03/25 23:59 80 mls/hr INFUSION JANIE Administration Cefazolin Sodium/Dextrose 2 gm in 50 mls @ 100 mls/hr 07/03/25 06:00 Ancef Duplex IVPB 07/03/25 23:59 PREOP JANIE IV Miscellaneous Supplies 1 each 07/03/25 06:00 Iv Access IV 07/03/25 23:59 DIRECTED JANIE Sodium Chloride 0 ml 07/03/25 06:00 Normal Saline Flush 10 Ml Syr IV 07/03/25 23:59 PRN PRN Sodium Chloride 0 ml 07/03/25 06:00 Normal Saline 10 Ml Vial IJ 07/03/25 23:59 DIRECTED PRN Sterile Water 0 ml 07/03/25 06:00 Water,Injection,Sterile 10 Ml Vial IJ 07/03/25 23:59 DIRECTED PRN PFSH Active Problems Active Problems: Problem Status Onset Code Venous stasis Acute I87.8 Acute lumbar back pain Acute M54.50 Stasis dermatitis Acute I87.2 Hemorrhoid thrombosis Acute K64.5 Transgender woman on hormone therapy Acute F64.0, Z79.899 Edema of calf Acute R60.0 Right hip pain Acute M25.551 Left knee DJD Chronic M17.12 Degenerative joint disease of right hip Chronic M16.11 KARRIE (obstructive sleep apnea) Chronic G47.33 Dysuria Acute R30.0 Adverse effect of non-steroidal anti-inflammatory drug (NSAID) Acute T39.395A CKD (chronic kidney disease) stage 3, GFR 30-59 ml/min Chronic N18.30 Snoring Acute R06.83 Postnasal drip Acute R09.82 Nasal congestion Acute R09.81 Dry eye syndrome Acute ~12/2021 H04.129 Transgender, S/P sex reassignment surgery Acute Z87.890 Family history of heart disease Acute Z82.49 History of heart attack Acute I25.2 Irregular heart beat Acute I49.9 Lung cancer screening declined by patient Acute Z53.20 Myofascial pain Acute M79.18 Adjustment disorder, unspecified Chronic 16 F43.20 Tubular adenoma of colon Chronic D12.6 Acute kidney injury Resolved N17.9 [id number] transgender person Chronic F64.0 Screening for AAA (abdominal aortic aneurysm) Acute Z13.6 Low back pain Acute M54.5 Musculoskeletal pain Acute M79.18 Bleeding hemorrhoid Acute K64.9 Nuclear sclerotic cataract of right eye Resolved H25.11 Nuclear sclerotic cataract of left eye Resolved H25.12 Hyperlipidemia Chronic E78.5 CAD (coronary artery disease) Chronic 06/27/17 I25.10 Medical History Medical History Hypertension Adjustment disorder Surgical History Surgical History History of colonoscopy (~06/2022) Hx of cataract extraction History of orchiectomy, bilateral 11/2018 Repair, ACL (~1988) Colonoscopy - IV Sedation (04/11/17) Coronary Artery Bypass Gaft (CABG) 2016 f/u dr. leblanc- telehealth 09/2020 Appendectomy (~1973) Tobacco Smoking/Tobacco Use Status: Former Tobacco Use Passive smoking exposure: No Alcohol Alcohol Intake: former Substance Use Substance use: Never Substance use type: does not use Vital Signs and Lab Results Vital Signs Most Recent Vital Signs in EMR: Most Recent Vital Signs Temp Pulse Resp BP Pulse Ox 36.1 C L 63 16 128/73 96 07/03/25 10:55 07/03/25 10:55 07/03/25 10:55 07/03/25 10:55 07/03/25 10:55 Imaging and Studies Imaging and Studies Study information below may be from another EMR and interpreted by another provider. Please see original notes in EMR for more complete details. Stress Test Summary: Date of Exam: 09/11/16Sex: M : 1950ge: 65 Exam(s) [id number] NM:MPI Resting & Stress GRP *[facility]* *[facility]* [address] [place] [address] Myocardial Perfusion Imaging - SPECT Paul protocol Date of study: 09/11/2016 *PATIENT PRESENTATION* Height: 172.7cm ((68in) ) Blood Pressure: Weight: 79.5kg ((175lb) ) BSA: 1.97m^2 Referring physician: Michael Dempsey MD Ordering physician: Sampson Akers Impressions: Abnormal study after pharmacologic stress. Summary: 1. Myocardial perfusion imaging: There is a small sized, moderately intense, predominantly fixed defect involving the apical inferior wall(s). This suggests small myocardial infarction and ischemia in the distribution of the right coronary artery. 2. The calculated left ventricular ejection fraction after stress: 59%. LV global systolic function is normal. There is hypokinesis involving the inferior wall(s) of the left ventricle. Anesthesia Assessment and Plan Anesthesia History Personal History: No History of Anesthesia Complications Family History: No Family History of Anesthesia Complications Exercise Tolerance Exercise Tolerance: Metabolic Equivalents>4 Pertinent Negatives Pertinent Negatives: No Symptoms of GERD Cardiac & Pulmonary Exam Cardiac Exam: Normal S1/S2 Heart Sounds Pulmonary Exam: Clear Bilateral Breath Sounds Implantable Cardiac Device Does patient have a Pacemaker or an ICD?: No Airway Exam Known Difficult Airway: No Mallampati Class: 1 Mouth Opening: Normal (> 3cm) Thyromental Distance: Greater than 3 cm Neck Range of Motion: Full ROM Neck Circumference: Normal Teeth Condition: Edentulous ASA Classification ASA Score: ASA 3 Emergency Case?: No NPO Status NPO Status: NPO Clears >2 hours, Solids >8 hours Anesthesia Plan Resuscitation Status: Full Code Anesthesia Technique: General Anesthesia Airway Planned: Natural Airway Monitors Used: Standard Monitors
[2025-07-03 12:39] VITALS: BMI 35.6
[2025-07-03] MEDS: ceFAZolin 2 GM/50 ML BAG IVPB (13:01)
[2025-07-03] MEDS: Bupivacaine 0.25% Pres-Free W/EPI 30 ML VIAL (13:35)
--- NOTE | 2025-07-03 13:43 | PDOC.DSDIS_ITS ---
Date of service: 07/03/25 Discharge Plan Disposition Patient Disposition: Home Condition: Good Discharge Details Attending Provider: Megan Orozco Primary Care Provider: Salina Alonso Home Meds and New Rx's Prescriptions: Continued omega-3 fatty acids Capsule 1,250 mg PO DAILY triamcinolone acetonide 0.1 % ointment 1 applic topical DAILY Qty: 80 2RF estradiol 0.05 mg/24 hr patch semiweekly 1 patch transdermal .2x/week fluticasone propionate [Flonase Allergy Relief] 50 mcg/actuation spray, suspension 1 spray intranasal DAILY Rx Instructions: administer into each nostril multivitamin [Daily Multi-Vitamin] 1 EACH tablet 1 ea PO DAILY aspirin 81 mg tablet,delayed release (DR/EC) 81 mg PO DAILY Qty: 60 estradiol 0.1 mg/24 hr patch semiweekly 1 patch TD .twice weekly acetaminophen 500 mg tablet 1,000 mg PO Q6H gabapentin 300 mg capsule 300 mg PO QHS Qty: 90 3RF metoprolol succinate 100 mg tablet extended release 24 hr See Rx Instructions .ROUTE .COMPLEX Qty: 180 3RF Dose Instruction: TAKE 1 TABLET BY MOUTH TWICE DAILY Rx Instructions: TAKE 1 TABLET BY MOUTH TWICE DAILY ezetimibe [Zetia] 10 mg tablet 10 mg PO DAILY Qty: 90 3RF hydromorphone [Dilaudid] 2 mg tablet 2 mg PO Q6H MDD 8mg PRN (Reason: pain) Qty: 15 0RF Rx Instructions: Take 1 tablet every 6 hours as needed for acute pain. Discontinued hydrocortisone acetate [Anusol-HC] 25 mg suppository 25 mg SC BID Qty: 24 0RF Discharge Instructions Instructions: Hemorrhoidectomy (DC) Additional Instructions: Your hemorrhoidectomy went well today. For pain control you can alternate tylenol and ibuprofen (if tolerated) as needed. A prescription was also sent to your pharmacy for a narcotic pain medication to take as needed. You may also use ice or a sitz bath, depending on which provides more relief for you. You do not need to apply any dressing or anything to your incision. You may want to use a pad or gauze initially if there is any bleeding. You may shower tomorrow and allow warm soapy water to run over the incision. Refrain from heavy lifting activity until seen in follow up. Please call the office if you have ongoing bleeding, fevers, or inability to urinate. Stand Alone Forms: Portal Information Activity:: Activity as Tolerated Diet:: As Tolerated Discharge Orders Discharge Orders: Discharge Order (Routine); Ordered 07/03/25 Ordered By: Megan Orozco
--- NOTE | 2025-07-03 13:43 | ROE_ITS ---
Operative Note Operative Note PRE-OP DIAGNOSIS: External hemorrhoid POST-OP DIAGNOSIS: same PROCEDURE: Excisional hemorrhoidectomy SURGEON: Megan Orozco FRONT END MECHANIC: Naila Vaughn ANESTHESIA TYPE: Local By Surgeon and MAC Refer to Anesthesia Record ESTIMATED BLOOD LOSS: 10 PATHOLOGY: none sent COMPLICATIONS: None Patient was transported to: PACU Patient's condition: stable Indications: Patient is a 74-year-old female who was evaluated in the clinic for concern for hemorrhoidal bleeding and discomfort. On exam in the clinic she had evidence of a large external hemorrhoid. Given her ongoing bleeding and discomfort in this area she elected to undergo an excisional hemorrhoidectomy. The risks and benefits of this procedure as well as the postoperative recovery were discussed at length and consent was obtained prior to the procedure. Findings: Excisional hemorrhoidectomy performed of single external hemorrhoid. Hemostasis achieved. Procedure Description: After induction of anesthesia the patient was then prepped and draped in sterile fashion. Prior to incision, an additional timeout was performed, which again confirmed the patient's name, date of , and the procedure to be performed, and antibiotics were given within an hour of incision. The procedure was initiated by performing bilateral pudendal nerve blocks and anterior field blocks with local anesthesia. Digital rectal exam revealed no evidence of any mass and further examination revealed no evidence of significant internal hemorrhoids. There was evidence of a large right sided external hemorrhoid. We grasped the external hemorrhoidal tissue, elevated it and then placed a retractor to place the sphincter on stretch. We injected local anesthesia above the sphincter. And an elliptical incision was then made around the base of the hemorrhoidal tissue and Metzenbaum scissors were used to dissect the hemorrhoidal tissue off of the sphincter with care not to damage it. We then used a LigaSure device to come through the apex of the hemorrhoidal tissue. The wound was then closed with a running locking 3-0 chromic suture. A [id number] was required at the apex for further hemostasis. We irrigated and there was no further bleeding. At the end of the case the anus could still accommodate the Hill-Rai retractor and there was no anal stenosis. A dressing was then placed. At this point, the patient was awoken, extubated and transported to the recovery room in stable condition. Sponge and instrument counts were correct. Date of Procedure: 07/03/25
[2025-07-03 13:45] VITALS: BP 91/47; PULSE 63; RESP 18; TEMP 36.1; O2SAT 96
[2025-07-03 14:15] VITALS: BP 93/57; PULSE 58; RESP 18; TEMP 36.2; O2SAT 96
--- NOTE | 2025-07-03 14:48 | W.ANESPOSTOP ---
Postoperative Evaluation Date, Time and Location Date Performed: 07/03/25 Time Performed: 14:48 Patient Location: Day Surgery Unit Vital Signs Most Recent Imported Vital Signs: Most Recent Vital Signs Temp Pulse Resp BP Pulse Ox 36.2 C L 58 L 18 93/57 L 96 07/03/25 14:15 07/03/25 14:15 07/03/25 14:15 07/03/25 14:15 07/03/25 14:15 Pain Score Most Recent Pain Score: Most Recent Pain Score Pain Level 0 07/03/25 14:15 Assessment Mental Status: Awake (Alert & Oriented to Patient Baseline) Airway and Respiratory Function: Patent airway with normal (patient baseline) respiratory exam Cardiovascular Function: Hemodynamically Stable Hydration Status: Adequately Hydrated Nausea & Vomiting: No Nausea or Vomiting Pain: Pt. Denies Any Pain Peripheral Nerve Block: Patient did not receive a nerve block
== END 2025-07-03 14:52 | disposition home or self-care (01) ==
PROVIDERS: PCP Nurse Practitioner Family; Visit Provider Student in an Organized Health Care Education/Training Program
PROC: (CPT 46250; principal; 2025-07-03 11:30)
DX: K64.4 Residual hemorrhoidal skin tags (principal)
CPT/HCPCS: 46250; J0690; J1100; J2003; J2405; J2704

== ENCOUNTER 2025-07-14 01:50 | Outpatient (CLI) | payer MEDICARE, SELFPAY ==
[2025-07-21 09:52] LABS: Apolipoprotein B, Serum 121 mg/dL (48-124); Beta VLDL Cholesterol Not Detected mg/dL (<15); Beta VLDL Triglycerides Not Detected mg/dL (<15); Cholesterol, Total, CDC 225 mg/dL; Chylomicron Cholesterol Not Detected; Chylomicron Triglycerides Not Detected; HDL Cholesterol, CDC 44 mg/dL (>=50); LpX Not detected; Triglycerides, CDC 171 mg/dL; VLDL Triglycerides 81 mg/dL (<120)
== END 2025-07-14 01:51 | disposition home or self-care (01) ==
PROVIDERS: PCP Nurse Practitioner Family; Visit Provider Nurse Practitioner Family
DX: I25.10 Atherosclerotic heart disease of native coronary artery without angina pectoris (principal); E78.1 Pure hyperglyceridemia
CPT/HCPCS: 36415; 80061; 83695; 82172; 82664

== ENCOUNTER → 2025-07-20 13:22 | Outpatient (BNVA) | payer MEDICARE, SELFPAY | PROVIDERS: PCP Nurse Practitioner Family; Referring Provider Nurse Practitioner Family; Visit Provider Student in an Organized Health Care Education/Training Program | DX: Z51.89 Encounter for other specified aftercare (principal); K64.8 Other hemorrhoids | CPT/HCPCS: 99024 ==

== ENCOUNTER 2025-08-16 10:54 | Emergency (ER) | payer MEDICARE, SELFPAY ==
[2025-08-16 10:57] VITALS: BP 121/67; PULSE 66; RESP 18; TEMP 36.8; O2SAT 95
--- NOTE | 2025-08-16 11:45 | DI.RAD_ITS ---
Exam(s) XR FOOT LT COMPLETE EXAM: XR FOOT LT COMPLETE CLINICAL HISTORY: Left foot lump. TECHNIQUE: 2D digital imaging was performed. COMPARISON: No exams were available for comparison FINDINGS: 3 views No evidence of acute fracture or diastasis of the Lisfranc joint. Accessory ossicles noted on the medial aspect of the foot adjacent to the navicular tuberosity. The more medial of the 2 sesamoid bones subjacent to the great toe metatarsal head is noted to be bipartite. No osseous lesions nor erosions evident. Small inferior calcaneal spur noted. There is no calcification in the plantar fascia. IMPRESSION: No acute osseous findings. Other findings as above. DATA REPOSITORY: RADIATION DOSE DELIVERED:
--- NOTE | 2025-08-16 13:05 | ED.GENADUL_ITS ---
Discharge Plan Disposition Patient Disposition: Home Discharge Details Clinical Impression: Acute pain of left foot Primary Care Provider: Salina Alonso ED Provider: Daniel Mata Home Meds and New Rx's Prescriptions: Continued omega-3 fatty acids Capsule 1,250 mg PO DAILY triamcinolone acetonide 0.1 % ointment 1 applic topical DAILY Qty: 80 2RF Praluent Pen 75 mg/mL pen injector 75 mg subcut Q2W 28 Days Qty: 2 12RF Rx Instructions: Inject 75 mg subcutaneously once every two weeks as directed. estradiol 0.05 mg/24 hr patch semiweekly 1 patch transdermal .2x/week fluticasone propionate [Flonase Allergy Relief] 50 mcg/actuation spray,suspens ion 1 spray intranasal DAILY Rx Instructions: administer into each nostril Repatha SureClick 140 mg/mL pen injector 140 mg subcut Q2W 28 Days Qty: 2 12RF Rx Instructions: Inject 140 mg subcutaneously once every 2 weeks as directed multivitamin [Daily Multi-Vitamin] 1 EACH tablet 1 ea PO DAILY aspirin 81 mg tablet,delayed release (DR/EC) 81 mg PO DAILY Qty: 60 estradiol 0.1 mg/24 hr patch semiweekly 1 patch TD .twice weekly acetaminophen 500 mg tablet 1,000 mg PO Q6H metoprolol succinate 100 mg tablet extended release 24 hr See Rx Instructions .ROUTE .COMPLEX Qty: 180 3RF Dose Instruction: TAKE 1 TABLET BY MOUTH TWICE DAILY Rx Instructions: TAKE 1 TABLET BY MOUTH TWICE DAILY hydromorphone [Dilaudid] 2 mg tablet 2 mg PO Q6H MDD 8mg PRN (Reason: pain) Qty: 15 0RF Rx Instructions: Take 1 tablet every 6 hours as needed for acute pain. ezetimibe [Zetia] 10 mg tablet 10 mg PO DAILY Qty: 90 3RF gabapentin 300 mg capsule 300 mg PO QHS Qty: 90 3RF Discharge Instructions Additional Instructions: You were seen in the emergency department for your foot pain. Your x-ray showed no signs of any fractures. As discussed, please return to emergency department if you develop worsening pain fevers or streaking signs of infection. For your pain please take medications as follows: 1. Take acetaminophen (Tylenol), 1,000 mg (two 500 mg tabs) every 6 hours Stand Alone Forms: Portal Information Discharge Data Discharge Date/Time-TO BE ENTERED AT DEPARTURE: 08/16/25 14:02 HPI General Date/Time Provider Initiated Documentation: 08/16/25 11:05 . HPI Narrative: MDM This is an overall quite well-appearing 74-year-old normothermic and not tachycardic patient with left foot lump lump but no obvious masses and reassuring plain films. Patient will receive empiric trial of discharge with expectant outpatient management. No pain out of proportion to suggest necrotizing soft tissue infection. No erythema to suggest cellulitis. No fluctuance to suggest abscess. No redness to suggest septic joint. No significant joint tenderness to suggest gout. No tick bites to suggest Lyme arthritis. No calf pain to suggest DVT. Patient has intact pulses so not suspicious for critical limb ischemia so do not feel patient requires an angiogram with runoffs. Patient is not a diabetic and has no signs of any foot ulcers. Patient and I discussed that patient should be return to the emergency department if there was development of any significant redness fevers streaking signs of infection or increasing pain. Otherwise I advised PCP follow-up for reassessment with possibility of additional imaging as clinically warranted based on reassessment. HPI The patient presents for evaluation of a lump on their left foot. They report the sensation of a lump in their left foot, which they first noticed this past Sunday. They describe the feeling as berenice to having a stone lodged in their foot. They are not diabetic. There is no associated redness or swelling. They have no history of gout, although they mention that their father had a mix of it. They also report no fevers or history of blood clots in their legs or lungs. Despite the discomfort, they retain mobility in the foot, although walking exacerbates the pain. Exam General: Well-appearing in no acute distress speaking in complete sentences. Head: Normocephalic, atraumatic. Eye: Extraocular eye movements intact. No conjunctival injection. No scleral icterus. Ear, nose, mouth, throat: Grossly normal inspection. Normal voice, handling secretions normally. Neck: Trachea midline. Cardiovascular: Well-perfused distal extremities. Respiratory: Nonlabored respiration. Gastrointestinal: Nondistended abdomen. Musculoskeletal: Left foot with intact range of motion. Cap refill less than 2 seconds left toes. 5/5 left foot strength dorsi and plantarflexion. No erythema. No fluctuance. No obvious masses left foot. Left foot intact PT and DP pulses. Skin: Normal for age and race, grossly normal temperature and turgor. No acute rash. Neurologic: Alert and appropriate, no apparent acute deficits. Psychiatric: Mood and manner are appropriate. Grooming and personal hygiene are appropriate. Related Data Home Medications ?Medication ?Instructions ?Recorded ?Confirmed multivitamin (Daily Multi-Vitamin 1 ea PO DAILY 08/16/25 tablet) aspirin 81 mg tablet,delayed 81 mg PO DAILY #60 tabs 0 08/30/18 08/16/25 release acetaminophen 500 mg tablet 1,000 mg PO Q6H 10/29/19 1 10/17/24 estradiol 0.1 mg/24 hr semiweekly 1 patch transdermal .twice weekly 10/29/19 08/16/25 transdermal patch omega-3 fatty acids 1,250 mg PO DAILY 08/23/21 1 10/17/24 estradiol 0.05 mg/24 hr semiweekly 1 patch transdermal .2x/week 02/18/24 08/16/25 transdermal patch fluticasone propionate 50 1 spray intranasal DAILY 09/1208/16/25 mcg/actuation nasal spray,suspension (Flonase Allergy Relief) metoprolol succinate 100 mg See Rx Instructions .Route 09/15/24 08/16/25 tablet,extended release 24 hr .COMPLEX #180 tabs triamcinolone acetonide 0.1 % 1 applic topical DAILY # 80 grams 06/04/25 08/16/25 topical ointment hydromorphone 2 mg tablet 2 mg PO Q6H PRN pain #15 tab s 07/03/25 08/16/25 (Dilaudid) evolocumab 140 mg/mL subcutaneous 140 mg subcut Q2W 28 days #2 mL 07/10/25 08/16/25 pen injector (Repatha SureClick) ezetimibe 10 mg tablet (Zetia) 10 mg PO DAILY #90 tabs 07/23/25 08/16/25 gabapentin 300 mg capsule 300 mg PO QHS #90 caps 07/2408/16/25 alirocumab 75 mg/mL subcutaneous 75 mg subcut Q2W 28 d ays #2 mL 08/03/25 08/16/25 pen injector (Praluent Pen) Previous Rx's ?Medication ?Instructions ?Recorded metoprolol succinate 100 mg See Rx Instructions .Route 09/15/24 tablet,extended release 24 hr .COMPLEX #180 tabs triamcinolone acetonide 0.1 % 1 applic topical DAILY # 80 grams 06/04/25 topical ointment hydromorphone 2 mg tablet 2 mg PO Q6H PRN pain #15 tab s 07/03/25 (Dilaudid) evolocumab 140 mg/mL subcutaneous 140 mg subcut Q2W 28 days #2 mL 07/10/25 pen injector (Repatha SureClick) ezetimibe 10 mg tablet (Zetia) 10 mg PO DAILY #90 tabs 07/23/25 gabapentin 300 mg capsule 300 mg PO QHS #90 caps 07/24 alirocumab 75 mg/mL subcutaneous 75 mg subcut Q2W 28 d ays #2 mL 08/03/25 pen injector (Praluent Pen) Allergies Allergy/AdvReac Type Severity Reaction Status Date / Time atorvastatin AdvReac Severe Mylagias Verified 08/16/25 11:03 pravastatin AdvReac Severe Mylagias Verified 08/16/25 11:03 rosuvastatin AdvReac myalgias Verified 08/16/25 11:03 General Stated Complaint: Orthopedic RENÉE: 4 Course Vital Signs Vital signs: Vital Signs Temperature 36.8 C 08/16/25 10:57 Pulse 66 08/16/25 10:57 Respiratory Rate 18 08/16/25 10:57 Blood Pressure 121/67 08/16/25 10:57 Pulse Oximetry 95 08/16/25 10:57 Temperature 36.8 C 08/16/25 10:57 Pulse 66 08/16/25 10:57 Respiratory Rate 18 08/16/25 10:57 Blood Pressure 121/67 08/16/25 10:57 Blood Pressure Position Sitting 08/16/25 10:57 Pulse Oximetry 95 08/16/25 10:57 Oxygen Delivery Method Room Air 08/16/25 10:57 Oxygen Flow Rate 0 08/16/25 10:57 Pain Level 2 08/16/25 10:57 PFSH All Active Problems (Updated 08/16/25 @ 13:44 by Daniel Mata MD) Acute pain of left foot (Acute) Statin intolerance (Acute) Venous stasis (Acute) Acute lumbar back pain (Acute) Stasis dermatitis (Acute) Hemorrhoid thrombosis (Acute) Transgender woman on hormone therapy (Acute) Edema of calf (Acute) Right hip pain (Acute) 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 55 (2021) Snoring (Acute) 07/17/23 OV with William Gamboa NP 09/27/23 CPAP ordered by William Gamboa NP Postnasal drip (Acute) Nasal congestion (Acute) Dry eye syndrome (Acute ~12/2021) 12/26/21 [facility] Transgender, S/P sex reassignment surgery (Acute) Family history of heart disease (Acute) History of heart attack (Acute) Irregular heart beat (Acute) Lung cancer screening declined by patient (Acute) Myofascial pain (Acute) Adjustment disorder, unspecified (Chronic 08/08/16) Tubular adenoma of colon (Chronic) [id number] transgender person (Chronic) Orchiectomy 11/2018 [facility] Screening for AAA (abdominal aortic aneurysm) (Acute) Low back pain (Acute) Musculoskeletal pain (Acute) Bleeding hemorrhoid (Acute) Hyperlipidemia (Chronic) CAD (coronary artery disease) (Chronic 06/27/17) Medical History Hypertension Adjustment disorder Surgical History History of colonoscopy (~06/2022) Hx of cataract extraction History of orchiectomy, bilateral 11/2018 Repair, ACL (~1988) Colonoscopy - IV Sedation (04/11/17) Coronary Artery Bypass [place] (CABG) 2016 f/u dr. leblanc- telehealth 09/2020 Appendectomy (~1973) Family History Mother Diabetes High cholesterol Family history of stroke or transient ischemic attack in mother Heart disease Father Arthritis Emphysema, unspecified Sister Kidney problem Brother Epileptic seizure Grandfather No problems noted. 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
--- NOTE | 2025-08-16 14:48 | DI.VRAD_ITS ---
PROCEDURE INFORMATION: Exam: XR Left Foot Exam date and time: 08/16/2025 1:16 PM Age: 74 years old Clinical indication: Condition or disease; Other: Lump. No history of recent trauma or surgery is currently provided. TECHNIQUE: Imaging protocol: Radiologic exam of the left foot. 3image(s) are provided. Views: 3 or more views. COMPARISON: No previous foot radiograph is currently available to evaluate for stability or interval change. FINDINGS: Bones/joints: Osseous alignment is maintained. No displaced fracture or dislocation is appreciated. There is some tiny plantar calcaneal spurring as well as marginal about the Achilles insertion. There appears to be some marginal degeneration of the midfoot. There appears to be some accessory ossicle for example about the navicular margin. There is some mild degeneration of the 1st metatarsophalangeal junction. Soft tissues: No radiopaque foreign body or subcutaneous emphysema is appreciated. There appears to be slight prominence of the soft tissues overall. IMPRESSION: There are some degenerative changes present with no fracture or dislocation appreciated.If there is persistent pain or limited range of motion then consider MRI. Dictated and Authenticated by: Lázaro Tamayo MD. Orderin Adolfo Sanchez MD
== END 2025-08-16 14:02 | disposition home or self-care (01) ==
PROVIDERS: Emergency Provider Emergency Medicine; PCP Nurse Practitioner Family
DX: M79.672 Pain in left foot (principal); I12.9 Hypertensive chronic kidney disease with stage 1 through stage 4 chronic kidney disease, or unspecified chronic kidney disease; N18.30 Chronic kidney disease, stage 3 unspecified; E78.5 Hyperlipidemia, unspecified; Z95.1 Presence of aortocoronary bypass graft; Z79.82 Long term (current) use of aspirin
CPT/HCPCS: 99283; 73630